=== PATIENT | female | born 1995 | race Caucasian/White ===

== ENCOUNTER 2017-12-28 06:27 | Emergency (ER) | payer OTHER ==
[2017-12-28 06:53] LABS: BILIRUBIN,URINE NEGATIVE (NEGATIVE); GLUCOSE, URINE (UA) NEGATIVE (NEGATIVE); KETONES,URINE (UA) NEGATIVE (NEGATIVE); LEUKOCYTE ESTERASE, URINE MODERATE (NEGATIVE); NITRITE,URINE NEGATIVE (NEGATIVE); OCCULT BLOOD,URINE NEGATIVE (NEGATIVE); PROTEIN,URINE NEGATIVE (NEGATIVE); UROBILINOGEN,URINE 0.2 (NORMAL) E.U./dL (NORMAL)
[2017-12-28 06:56] LABS: CLARITY,URINE HAZY (CLEAR); HCG UR QUAL NEGATIVE
[2017-12-28 07:04] LABS: RBC,URINE 0-5 /HPF (0-5); SQUAMOUS EPITHELIAL CELL,UR MOD Squamous (<= Few)
[2017-12-28 07:05] LABS: BACTERIA,URINE Few /HPF (None Seen)
[2017-12-28] MEDS ORDERED: PHENAZOPYRIDINE 100 MG TABLET PO STA (07:20)
[2017-12-28] MEDS ORDERED: NITROFURANTOIN MACRO 100 MG CAPSULE PO STA (07:20)
[2017-12-28] MEDS ORDERED: NAPROXEN 250 MG TABLET PO STA (07:21)
--- NOTE | 2017-12-28 07:24 | ED Physician Documentation ---
PD HPI FEMALE - Stated complaint Stated Complaint: FEMALE - Chief complaint Chief Complaint: Abd Pain - History obtained from History obtained from: Patient - History of Present Illness Timing - duration: Days (3) Timing - details: Still present Associated symptoms: Dysuria, Urinary frequency Similar symptoms before: Diagnosis (History of recurrent UTI's. The last time was about 6 months ago.) - Additional information Additional information: The patient is a 22-year-old female who presents with dysuria of 3 days patient. It is worse this morning. She denies fever, nausea or vomiting. She has history of similar symptoms in the past with recurrent urinary tract infections. The last time was about 6 months ago. Her last menstrual period was about 3 weeks ago. Review of Systems Constitutional: denies: Fever Nose: denies: Congestion Cardiac: denies: Chest pain / pressure Respiratory: denies: Dyspnea GI: reports: Abdominal Pain. denies: Nausea, Vomiting : reports: Dysuria, Frequency, LMP (3 weeks ago.) Skin: denies: Rash Musculoskeletal: denies: Back pain Neurologic: denies: Headache PD PAST MEDICAL HISTORY - Past Medical History Past Medical History: No - Past Surgical History Past Surgical History: No - Present Medications Home Medications: Ambulatory Orders Medication Instructions Recorded Confirmed Nitrofurantoin [Macrobid] 100 mg PO BID #10 capsule 12/28/17 Phenazopyridine HCl [Pyridium] 200 mg PO TID PRN #10 tablet 12/28/17 - Allergies Allergies/Adverse Reactions: Allergies Allergy/AdvReac Type Severity Reaction Status Date / Time No Known Drug Allergies Allergy Verified 12/28/17 06:37 - Social History Does the pt smoke?: No Smoking Status: Never smoker Does the pt drink ETOH?: No Does the pt have substance abuse?: No - Immunizations Immunizations are current?: Yes PD ED PE NORMAL - Vitals Vital signs reviewed: Yes (normal) - General General: Alert and oriented X 3, Well developed/nourished - HEENT HEENT: Atraumatic - Cardiac Cardiac: RRR - Respiratory Respiratory: No respiratory distress, Clear bilaterally - Abdomen Abdomen: Soft, Other (Suprapubic tenderness without rebound or guarding.) - Back Back: No CVA TTP - Derm Derm: No rash - Neuro Neuro: Alert and oriented X 3, Normal speech Results - Vitals Vitals: Vital Signs - 24 hr 12/28/17 06:31 Temperature 36.1 C L Heart Rate 73 Respiratory 16 Rate Blood Pressure 118/85 H O2 Saturation 100 Oxygen O2 Source Room air - Labs Labs: Laboratory Tests 12/28/17 06:43 Urine Color LIGHT YELLOW Urine Clarity HAZY Urine pH 6.0 Ur Specific [place] <=1.005 Urine Protein NEGATIVE Urine Glucose (UA) NEGATIVE Urine Ketones NEGATIVE Urine Occult Blood NEGATIVE Urine Nitrite NEGATIVE Urine Bilirubin NEGATIVE Urine Urobilinogen 0.2 (NORMAL) Ur Leukocyte Esterase MODERATE H Urine RBC 0-5 Urine WBC 11-25 H Ur Squamous Epith Cells MOD Squamous H Urine Bacteria Few Ur Microscopic Review INDICATED Urine Culture Comments NOT INDICATED Urine HCG, Qual NEGATIVE PD MEDICAL DECISION MAKING - ED course Complexity details: reviewed results, considered differential, d/w patient, d/w family ED course: The patient's presentation is most consistent with acute cystitis. Her presentation does not suggest sepsis or pyelonephritis. Treatment in the emergency department included administration of Macrobid 100 mg orally and Pyridium 200 mg orally. Also Naprosyn 500 mg administered orally. I discussed with the patient and her the expected course of illness, antibiotic treatment and outpatient follow-up, as well as potentially worrisome signs or symptoms that should prompt reevaluation in the emergency department. Departure - Departure Disposition: 01 Home, Self Care Clinical Impression: Urinary tract infection Qualifiers: Urinary tract infection type: acute cystitis Hematuria presence: without hematuria Qualified Code(s): N30.00 - Acute cystitis without hematuria Instructions: ED UTI Cystitis Female Follow-Up: [facility] [Provider Group] Prescriptions: Nitrofurantoin [Macrobid] 100 mg PO BID #10 capsule Phenazopyridine HCl [Pyridium] 200 mg PO TID PRN #10 tablet PRN Reason: pain with urination Comments: Drink plenty of fluids, including cranberry juice. Take Macrobid twice daily as prescribed. You can use Pyridium as prescribed if needed for painful urination. You can use ibuprofen, up to 800 mg 3 times daily for its anti-inflammatory effect. Follow up with your primary physician within 2 weeks. Call to schedule appointment. Return to the emergency department if you develop increasing abdominal pain, fever with shaking chills, persistent vomiting, or otherwise worsening symptoms.
[2017-12-28 07:40] VITALS: BP 126/64
== END 2017-12-28 07:40 | disposition home or self-care (01) ==
LOC: ED 06:27
DX: N30.00 Acute cystitis without hematuria (principal)
CPT/HCPCS: 81001; 81025; 99283; A9270; 81003; 87086

== ENCOUNTER 2018-08-20 22:26 | Emergency (ER) | payer OTHER ==
[2018-08-20 22:41] VITALS: BP 130/78
--- NOTE | 2018-08-20 22:54 | ED Physician Documentation ---
PD HPI FEMALE - Stated complaint Stated Complaint: FEMALE - Chief complaint Chief Complaint: UTI - History obtained from History obtained from: Patient - History of Present Illness Timing - onset: How many days ago (2-3) Timing - duration: Days (2-3) Timing - details: Gradual onset, Still present Associated symptoms: Back pain (right flank), Dysuria, Urinary frequency. No: Fever, Vaginal discharge, Genital sore/lesion Contributing factors: No: Exposed to STD Similar symptoms before: Diagnosis (UTI) Recently seen: Not recently seen Review of Systems Constitutional: denies: Fever, Chills, Myalgias Nose: denies: Rhinorrhea / runny nose, Congestion Throat: denies: Sore throat Respiratory: denies: Cough GI: denies: Nausea, Vomiting, Diarrhea : reports: Dysuria, Frequency Skin: denies: Rash Musculoskeletal: reports: Back pain. denies: Neck pain PD PAST MEDICAL HISTORY - Past Medical History Past Medical History: Yes Cardiovascular: None Respiratory: None Neuro: None Endocrine/Autoimmune: None : Other Other Past Medical History: UTI - Past Surgical History Past Surgical History: No - Present Medications Home Medications: Ambulatory Orders Medication Instructions Recorded Confirmed Hydrocodone/Acetaminophen [Walker 1 each PO Q6H PRN #8 tablet 08/20/18 5-325 Tablet] Naproxen 375 mg PO BID #15 tablet 08/20/18 Sulfamethox/Trimeth 800/160 1 each PO BID #14 tablet 08/20/18 [Bactrim Ds 800/160] - Allergies Allergies/Adverse Reactions: Allergies Allergy/AdvReac Type Severity Reaction Status Date / Time No Known Drug Allergies Allergy Verified 08/20/18 22:41 - Social History Does the pt smoke?: No Smoking Status: Never smoker Does the pt drink ETOH?: No Does the pt have substance abuse?: No - Immunizations Immunizations are current?: Yes - POLST Patient has POLST: No PD ED PE NORMAL - Vitals Vital signs reviewed: Yes - General General: Alert and oriented X 3, No acute distress, Well developed/nourished - Abdomen Abdomen: Soft, Non distended, Other (mild tenderness suprapubic without guarding nor percussion tenderness. ) - Female Female : Deferred - Rectal Rectal: Deferred - Back Back: No spinal TTP, Other (mild right CVA tenderness to percussion) - Derm Derm: Normal color, Warm and dry Results - Vitals Vitals: Vital Signs - 24 hr 08/20/18 22:40 Temperature 37.0 C Heart Rate 84 Respiratory 15 Rate Blood Pressure 130/78 O2 Saturation 98 Oxygen O2 Source Room air - Labs Labs: Laboratory Tests 08/20/18 08/20/18 22:50 22:50 Urine Color ORANGE Urine Clarity CLOUDY Urine pH 7.0 Ur Specific [place] 1.020 1.020 Urine Protein Urine Glucose (UA) 100 H Urine Ketones NEGATIVE Urine Occult Blood Urine Nitrite Urine Bilirubin COLOR INTERFERENCE Urine Urobilinogen Ur Leukocyte Esterase NEGATIVE Urine RBC 0-5 Urine WBC 11-25 H Ur Squamous Epith Cells FEW Squamous Amorphous Sediment Few Urine Bacteria Few Ur Microscopic Review INDICATED Urine Culture Comments INDICATED Urine HCG, Qual NEGATIVE PD MEDICAL DECISION MAKING - ED course Complexity details: reviewed results, considered differential, d/w patient Departure - Departure Disposition: 01 Home, Self Care Clinical Impression: Urinary tract infection Qualifiers: Urinary tract infection type: acute cystitis Hematuria presence: without hematuria Qualified Code(s): N30.00 - Acute cystitis without hematuria Condition: Stable Record reviewed to determine appropriate education?: Yes Instructions: ED UTI Cystitis Female Prescriptions: Hydrocodone/Acetaminophen [Walker 5-325 Tablet] 1 each PO Q6H PRN #8 tablet PRN Reason: Pain Naproxen 375 mg PO BID #15 tablet Sulfamethox/Trimeth 800/160 [Bactrim Ds 800/160] 1 each PO BID #14 tablet Comments: Stay well-hydrated. You can continue the phenazopyridine if needed for urinary discomfort. Add naproxen anti-inflammatory twice daily for the next week or so. Add Tylenol or pain medicine if needed for pain beyond that. Your urine sample does show signs of an infection which correlates with your symptoms so we will treat that with Bactrim antibiotic twice daily as directed. Recheck if not improving over the next few days. Discharge Date/Time: 08/20/18 23:30
[2018-08-20] MEDS ORDERED: SULFAMETH/TRIMETH DS 800/160 MG TABLET PO STA (23:03)
[2018-08-20] MEDS ORDERED: HYDROcod/ACETAM 5/325 MG TABLET PO STA (23:03)
[2018-08-20] MEDS ORDERED: NAPROXEN 250 MG TABLET PO STA (23:03)
[2018-08-20 23:15] LABS: HCG UR QUAL NEGATIVE
[2018-08-20 23:16] LABS: CLARITY,URINE CLOUDY (CLEAR); LEUKOCYTE ESTERASE, URINE NEGATIVE (NEGATIVE)
[2018-08-20 23:19] LABS: BILIRUBIN,URINE COLOR INTERFERENCE (NEGATIVE); GLUCOSE, URINE (UA) 100 mg/dL (NEGATIVE); KETONES,URINE (UA) NEGATIVE (NEGATIVE)
[2018-08-20 23:20] LABS: RBC,URINE 0-5 /HPF (0-5); SQUAMOUS EPITHELIAL CELL,UR FEW Squamous (<= Few)
[2018-08-20 23:21] LABS: AMORPHOUS SEDIMENT,UR Few /LPF; BACTERIA,URINE Few /HPF (None Seen)
== END 2018-08-20 23:30 | disposition home or self-care (01) ==
LOC: ED 22:26
DX: N30.00 Acute cystitis without hematuria (principal)
CPT/HCPCS: 81001; 81025; 87077; 87086; 87181; 99283; A9270; 81003

== ENCOUNTER 2018-09-14 22:45 | Emergency (ER) | payer OTHER ==
[2018-09-14 22:51] VITALS: BP 139/94
[2018-09-14] MEDS ORDERED: AZITHROMYCIN 250 MG TABLET PO STA (23:07)
[2018-09-14] MEDS ORDERED: cefTRIAXone 250 MG VIAL IM STA (23:07)
[2018-09-14] MEDS ORDERED: RALTEGRAVIR 400 MG TABLET PO STA (23:07)
[2018-09-14] MEDS ORDERED: lamiVUDine/ZIDOVUDINE 150 MG/300 MG TABLET PO STA (23:07)
[2018-09-14] MEDS ORDERED: ULIPRISTAL ACETATE 30 MG TABLET PO STA (23:07)
[2018-09-14] MEDS ORDERED: ONDANSETRON 4 MG/2 ML VIAL IVP STA (23:08)
[2018-09-14] MEDS ORDERED: ONDANSETRON ODT 4 MG TABLET TL STA (23:27)
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
[2018-09-15 01:09] LABS: BILIRUBIN,URINE NEGATIVE (NEGATIVE); GLUCOSE, URINE (UA) NEGATIVE (NEGATIVE); KETONES,URINE (UA) NEGATIVE (NEGATIVE); LEUKOCYTE ESTERASE, URINE SMALL (NEGATIVE); NITRITE,URINE NEGATIVE (NEGATIVE); OCCULT BLOOD,URINE NEGATIVE (NEGATIVE); PH,URINE 6.5 PH (5.0-7.5); PROTEIN,URINE NEGATIVE (NEGATIVE); UROBILINOGEN,URINE 0.2 (NORMAL) E.U./dL (NORMAL)
[2018-09-15] MEDS: LIDOCAINE 1% 2 ML VIAL SUBQ ONE ×2 (01:10→01:11)
[2018-09-15 01:15] LABS: CLARITY,URINE HAZY (CLEAR)
[2018-09-15 01:16] LABS: HCG UR QUAL NEGATIVE
[2018-09-15 01:29] LABS: BACTERIA,URINE Few /HPF (None Seen); RBC,URINE None Seen /HPF (0-5); SQUAMOUS EPITHELIAL CELL,UR MANY Squamous (<= Few)
[2018-09-17 13:21] LABS: HIV AG/AB 4TH GEN NON-REACTIVE (NON-REACTIVE)
== END 2018-09-15 01:47 | disposition home or self-care (01) ==
LOC: ED 22:45
DX: T76.21XA Adult sexual abuse, suspected, initial encounter (principal); Z20.2 Contact with and (suspected) exposure to infections with a predominantly sexual mode of transmission
CPT/HCPCS: 0133C; 81001; 81025; 87389; 87491; 87591; 96372; 99283; A9270; Q0162; 81003; 87086

== ENCOUNTER 2019-01-22 16:15 | Emergency (ER) | payer OTHER ==
[2019-01-22 16:22] VITALS: BP 121/83
[2019-01-22] MEDS ORDERED: DICYCLOMINE 10 MG CAPSULE PO STA (16:28)
[2019-01-22] MEDS ORDERED: ONDANSETRON ODT 4 MG TABLET TL STA (16:28)
--- NOTE | 2019-01-22 16:29 | ED Physician Documentation ---
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 She had some loose stools and nausea yesterday. She has them some diffuse abdominal cramping. There is a possibility of but she is not let yet late on her menses. No fevers. No sick contacts, no recent travel.) Review of Systems Constitutional: denies: Fever, Chills, Fatigue Cardiac: denies: Chest pain / pressure, Palpitations Respiratory: denies: Dyspnea, Cough PD PAST MEDICAL HISTORY - Past Medical History Cardiovascular: None Respiratory: None Neuro: None Endocrine/Autoimmune: None : Other - Past Surgical History Past Surgical History: No - Present Medications Home Medications: Ambulatory Orders Medication Instructions Recorded Confirmed Dicyclomine [Bentyl] 20 mg PO QID PRN #15 capsule 01/22/19 Ondansetron Odt [Zofran] 4 mg TL Q6H PRN #10 tablet 01/22/19 - Allergies Allergies/Adverse Reactions: Allergies Allergy/AdvReac Type Severity Reaction Status Date / Time No Known Drug Allergies Allergy Verified 01/22/19 16:21 - Social History Does the pt smoke?: No Smoking Status: Never smoker Does the pt drink ETOH?: No Does the pt have substance abuse?: No - Immunizations Immunizations are current?: Yes - POLST Patient has POLST: No PD ED PE NORMAL - Vitals Vital signs reviewed: Yes - General General: Alert and oriented X 3, No acute distress - HEENT HEENT: Moist mucous membranes - Cardiac Cardiac: RRR, No murmur - Respiratory Respiratory: No respiratory distress, Clear bilaterally - Abdomen Abdomen: Soft, Non tender - Neuro Neuro: Alert and oriented X 3, Normal speech Results - Vitals Vitals: Vital Signs - 24 hr 01/22/19 16:18 Temperature 36.8 C Heart Rate 105 H Respiratory 14 Rate Blood Pressure 121/83 H O2 Saturation 99 Oxygen O2 Source Room air - Labs Labs: Laboratory Tests 01/22/19 16:18 Urine Color YELLOW Urine Clarity CLEAR Urine pH 6.5 Ur Specific [place] 1.020 Urine Protein NEGATIVE Urine Glucose (UA) NEGATIVE Urine Ketones NEGATIVE Urine Occult Blood NEGATIVE Urine Nitrite NEGATIVE Urine Bilirubin NEGATIVE Urine Urobilinogen 0.2 (NORMAL) Ur Leukocyte Esterase NEGATIVE Ur Microscopic Review NOT INDICATED Urine Culture Comments NOT INDICATED Urine HCG, Qual NEGATIVE PD MEDICAL DECISION MAKING - ED course ED course: 23-year-old woman with vomiting, mild diarrhea and cramping, benign examination. She is not on urine here and feeling better after Zofran and Bentyl. Departure - Departure Disposition: 01 Home, Self Care Clinical Impression: Vomiting Qualifiers: Vomiting type: unspecified Vomiting Intractability: non-intractable Nausea presence: with nausea Qualified Code(s): R11.2 - Nausea with vomiting, unspecified Condition: Good Record reviewed to determine appropriate education?: Yes Instructions: ED Nausea Vomiting Prescriptions: Dicyclomine [Bentyl] 20 mg PO QID PRN #15 capsule PRN Reason: Abdominal Pain Ondansetron Odt [Zofran] 4 mg TL Q6H PRN #10 tablet PRN Reason: Nausea / Vomiting Comments: As discussed you should be better tomorrow morning or tomorrow midday if not please return for reevaluation, anytime if worse. Forms: Activity restrictions
[2019-01-22 16:37] LABS: BILIRUBIN,URINE NEGATIVE (NEGATIVE); GLUCOSE, URINE (UA) NEGATIVE (NEGATIVE); KETONES,URINE (UA) NEGATIVE (NEGATIVE); LEUKOCYTE ESTERASE, URINE NEGATIVE (NEGATIVE); NITRITE,URINE NEGATIVE (NEGATIVE); OCCULT BLOOD,URINE NEGATIVE (NEGATIVE); PH,URINE 6.5 PH (5.0-7.5); PROTEIN,URINE NEGATIVE (NEGATIVE); UROBILINOGEN,URINE 0.2 (NORMAL) E.U./dL (NORMAL)
[2019-01-22 16:38] LABS: CLARITY,URINE CLEAR (CLEAR)
[2019-01-22 16:39] LABS: HCG UR QUAL NEGATIVE
== END 2019-01-22 17:12 | disposition home or self-care (01) ==
LOC: ED 16:15
DX: R11.2 Nausea with vomiting, unspecified (principal)
CPT/HCPCS: 81003; 81025; 99283; A9270; Q0162; 80053; 81001; 83690; 85025; 87086

== ENCOUNTER 2019-07-19 23:37 | Emergency (ER) | payer OTHER ==
[2019-07-19 23:48] VITALS: BP 125/74
--- NOTE | 2019-07-20 00:08 | ED Physician Documentation ---
PD HPI SKIN - Stated complaint Stated Complaint: BODY RASH - Chief complaint Chief Complaint: Wound - History obtained from History obtained from: Patient - History of Present Illness Timing - onset: How many months ago (1) Timing - details: Abrupt onset, Intermittant Pain level max: 0 Pain level now: 0 Location: Bodywide Quality / character: Itchy, Discolored Improved by: Other (nothing) Associated symptoms: No: Fever, Myalgias, Joint pain, Dyspnea Contributing factors: Unknown Similar symptoms before: Has not had sx before Recently seen: Not recently seen - Additional information Additional information: c/o one month of intermittent/episodic pruritic rash. Location varies at different times. Patient has noticed that the rash has tended to be preceded by itching, then the rash appears within several minutes but then resolves within 15-30 minutes. 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 HEENT: None Psych: None Musculoskeletal: None - Past Surgical History Past Surgical History: No - Present Medications Home Medications: Ambulatory Orders Medication Instructions Recorded Confirmed hydrOXYzine pamoate [Hydroxyzine 25 - 50 mg PO Q6HR PRN #20 capsule 07/20/19 Pamoate] predniSONE [Deltasone] 10 mg PO [id number] #42 tab 07/20/19 - Allergies Allergies/Adverse Reactions: Allergies Allergy/AdvReac Type Severity Reaction Status Date / Time No Known Drug Allergies Allergy Verified 07/19/19 23:48 - Social History Does the pt smoke?: No Smoking Status: Never smoker Does the pt drink ETOH?: Yes Does the pt have substance abuse?: No - Immunizations Immunizations are current?: Yes - POLST Patient has POLST: No PD ED PE NORMAL - Vitals Vital signs reviewed: Yes - General General: Alert and oriented X 3, No acute distress, Well developed/nourished - Neck Neck: Supple, no meningeal sign - Respiratory Respiratory: No respiratory distress, Clear bilaterally - Derm Derm: Normal color, Warm and dry, No rash - Extremities Extremities: No edema Results - Vitals Vitals: Vital Signs - 24 hr 07/19/19 23:46 Temperature 36.9 C Heart Rate 98 Respiratory 15 Rate Blood Pressure 125/74 O2 Saturation 99 Oxygen O2 Source Room air PD MEDICAL DECISION MAKING - ED course Complexity details: considered differential, d/w patient ED course: no rash on initial evaluation. patient shows me pictures of the rash and they appear to be distinctly linear in distribution that would be consistent with areas of excoriation. I then used gloved fingernail to stroke across patient back and within ensuing 1-2 minutes, there were bright erythematous lines with urticaria within these areas and she c/o pruritis in these areas. this is c/w symptomatic dermatographism; there are no obvious causes such as new medication. Departure - Departure Disposition: 01 Home, Self Care Clinical Impression: Dermatographism Condition: Good Instructions: ED Urticaria Follow-Up: [facility] [Provider Group] Prescriptions: hydrOXYzine pamoate [Hydroxyzine Pamoate] 25 - 50 mg PO Q6HR PRN #20 capsule PRN Reason: Itching predniSONE [Deltasone] 10 mg PO [id number] #42 tab Discharge Date/Time: 07/20/19 00:50
[2019-07-20] MEDS ORDERED: hydrOXYzine PAMOATE 25 MG CAPSULE PO STA (00:42)
[2019-07-20] MEDS ORDERED: predniSONE 20 MG TABLET PO STA (00:42)
== END 2019-07-20 00:50 | disposition home or self-care (01) ==
LOC: ED 23:37
DX: L50.3 Dermatographic urticaria (principal)
CPT/HCPCS: 99282; 99284; A9270; J7512

== ENCOUNTER 2020-01-11 22:45 | Outpatient (CLI) | payer OTHER | END 2020-01-11 23:59 | disposition EMS.NT | LOC: EMS 22:45 | PROVIDERS: ATTEND Surgery | DX: R06.9 Unspecified abnormalities of breathing (principal) ==

== ENCOUNTER 2020-06-19 00:34 | Emergency (ER) | payer OTHER ==
--- NOTE | 2020-06-19 00:54 | ED Physician Documentation ---
PD HPI FEMALE - Stated complaint Stated Complaint: F - Chief complaint Chief Complaint: UTI - History obtained from History obtained from: Patient - History of Present Illness Timing - onset: Enter time (19:00), Today Timing - duration: Hours Timing - details: Abrupt onset Associated symptoms: Dysuria, Urinary frequency. No: Fever Contributing factors: No: Similar symptoms before: Diagnosis (similar to previous UTIs) Recently seen: Not recently seen - Additional information Additional information: c/o burning dysuria with urinary frequency and suprapubic pressure since 7 PM Review of Systems Constitutional: denies: Fever GI: denies: Abdominal Pain, Nausea, Vomiting : reports: Dysuria, Frequency. 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 HEENT: None Psych: None Musculoskeletal: None - Past Surgical History Past Surgical History: No - Present Medications Home Medications: Ambulatory Orders Medication Instructions Recorded Confirmed hydrOXYzine pamoate [Hydroxyzine 25 - 50 mg PO Q6HR PRN #20 capsule 07/20/19 Pamoate] predniSONE [Deltasone] 10 mg PO [id number] #42 tab 07/20/19 Nitrofurantoin Monohyd/M-Cryst 100 mg PO BID #10 capsule 06/19/20 [Macrobid 100 mg Capsule] Phenazopyridine HCl [Pyridium] 200 mg PO TID PRN #6 tablet 06/19/20 - Allergies Allergies/Adverse Reactions: Allergies Allergy/AdvReac Type Severity Reaction Status Date / Time No Known Drug Allergies Allergy Verified 07/19/19 23:48 - Social History Does the pt smoke?: No Smoking Status: Never smoker Does the pt drink ETOH?: Yes Does the pt have substance abuse?: No - Immunizations Immunizations are current?: Yes - POLST Patient has POLST: No PD ED PE NORMAL - Vitals Vital signs reviewed: Yes - General General: Alert and oriented X 3, No acute distress - Abdomen Abdomen: Soft, Non tender - Back Back: No CVA TTP Results - Vitals Vitals: Vital Signs - 24 hr 06/19/20 06/19/20 00:38 01:29 Temperature 36.9 C Heart Rate 95 82 Respiratory 18 16 Rate Blood Pressure 126/74 126/78 O2 Saturation 98 99 Oxygen O2 Source Room air - Labs Labs: Laboratory Tests 06/19/20 00:50 Urine Color CLEAR Urine Clarity [place] CLOUDY Urine pH 6.5 Ur Specific [place] <=1.005 Urine Protein NEGATIVE Urine Glucose (UA) NEGATIVE Urine Ketones NEGATIVE Urine Occult Blood LARGE H Urine Nitrite NEGATIVE Urine Bilirubin NEGATIVE Urine Urobilinogen 0.2 (NORMAL) Ur Leukocyte Esterase LARGE H Urine RBC 6-10 H Urine WBC >25 H Ur Squamous Epith Cells FEW Squamous Urine Bacteria Few Ur Microscopic Review INDICATED Urine Culture Comments INDICATED PD MEDICAL DECISION MAKING - ED course Complexity details: reviewed old records, reviewed results, considered differential, d/w patient Departure - Departure Disposition: Home, Self Care Clinical Impression: Urinary tract infection Condition: Good Instructions: ED UTI Cystitis Female Follow-Up: Stephani Mackenzie MD [Primary Care Provider] - (3-5 days if symptoms persist) Prescriptions: Nitrofurantoin Monohyd/M-Cryst [Macrobid 100 mg Capsule] 100 mg PO BID #10 capsule Phenazopyridine HCl [Pyridium] 200 mg PO TID PRN #6 tablet PRN Reason: dysuria Discharge Date/Time: 06/19/20 01:30
[2020-06-19 01:01] LABS: BILIRUBIN,URINE NEGATIVE (NEGATIVE); CLARITY,URINE SL. CLOUDY (CLEAR); GLUCOSE, URINE (UA) NEGATIVE (NEGATIVE); KETONES,URINE (UA) NEGATIVE (NEGATIVE); LEUKOCYTE ESTERASE, URINE LARGE (NEGATIVE); NITRITE,URINE NEGATIVE (NEGATIVE); OCCULT BLOOD,URINE LARGE (NEGATIVE); PH,URINE 6.5 PH (5.0-7.5); PROTEIN,URINE NEGATIVE (NEGATIVE); UROBILINOGEN,URINE 0.2 (NORMAL) E.U./dL (NORMAL)
[2020-06-19 01:02] LABS: BACTERIA,URINE Few /HPF (None Seen); SQUAMOUS EPITHELIAL CELL,UR FEW Squamous (<= Few)
[2020-06-19] MEDS ORDERED: NITROFURANTOIN MACRO 100 MG CAPSULE PO STA (01:20)
[2020-06-19] MEDS ORDERED: PHENAZOPYRIDINE 100 MG TABLET PO STA (01:20)
[2020-06-19 01:30] VITALS: BP 126/78
== END 2020-06-19 01:30 | disposition home or self-care (01) ==
LOC: ED 00:34
DX: N39.0 Urinary tract infection, site not specified (principal)
CPT/HCPCS: 81001; 87086; 99283; A9270; 81003

== ENCOUNTER 2020-09-15 10:44 | Emergency (ER) | payer OTHER ==
[2020-09-15 10:49] VITALS: BP 137/86
[2020-09-15 11:02] LABS: BILIRUBIN,URINE NEGATIVE (NEGATIVE); GLUCOSE, URINE (UA) NEGATIVE (NEGATIVE); KETONES,URINE (UA) NEGATIVE (NEGATIVE); LEUKOCYTE ESTERASE, URINE LARGE (NEGATIVE); NITRITE,URINE NEGATIVE (NEGATIVE); OCCULT BLOOD,URINE MODERATE (NEGATIVE); PH,URINE 6.5 PH (5.0-7.5); PROTEIN,URINE NEGATIVE (NEGATIVE); UROBILINOGEN,URINE 0.2 (NORMAL) E.U./dL (NORMAL)
[2020-09-15 11:04] LABS: CLARITY,URINE HAZY (CLEAR); HCG UR QUAL NEGATIVE
[2020-09-15 11:12] LABS: BACTERIA,URINE Few /HPF (None Seen); RBC,URINE 0-5 /HPF (0-5); SQUAMOUS EPITHELIAL CELL,UR RARE Squamous (<= Few); WBC CLUMPS,URINE PRESENT
[2020-09-15] MEDS ORDERED: cefTRIAXone 1 GM VIAL IM STA (11:23)
[2020-09-15] MEDS ORDERED: LIDOCAINE 1% 2 ML VIAL MC ONE (11:23)
--- NOTE | 2020-09-15 11:26 | ED Physician Documentation ---
PD HPI FEMALE - Stated complaint Stated Complaint: FEMALE - Chief complaint Chief Complaint: UTI - History obtained from History obtained from: Patient - History of Present Illness Timing - onset: How many days ago (4) Timing - duration: Days (4) Timing - details: Gradual onset, Still present Associated symptoms: Back pain, Dysuria, Urinary frequency. No: Fever, Chest/shoulder pain, Abdominal pain, Pelvic pain, Vaginal pain, Vaginal bleeding, Vaginal discharge, Genital sore/lesion, Hematuria Similar symptoms before: Diagnosis (UTI) Recently seen: Not recently seen - Additional information Additional information: Previously well 25-year-old female with a history of urinary tract infections has developed symptoms again of urinary tract infection about 3 or 4 days ago. Yesterday she began to get some pain in her left flank as well but she has not had any nausea fever vomiting or other symptoms. Review of Systems Constitutional: denies: Fever, Chills, Myalgias Eyes: denies: Decreased vision Ears: denies: Ear pain Nose: denies: Rhinorrhea / runny nose, Congestion Throat: denies: Sore throat Cardiac: denies: Chest pain / pressure, Palpitations Respiratory: denies: Dyspnea, Cough GI: denies: Abdominal Pain, Nausea, Vomiting, Constipation, Diarrhea : reports: Dysuria, Frequency Skin: denies: Rash Musculoskeletal: reports: Back pain. 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 HEENT: None Psych: None Musculoskeletal: None - Past Surgical History Past Surgical History: No - Present Medications Home Medications: Ambulatory Orders Medication Instructions Recorded Confirmed Sulfamethox/Trimeth 800/160 1 each PO BID #14 tablet 09/15/20 [Bactrim Ds] - Allergies Allergies/Adverse Reactions: Allergies Allergy/AdvReac Type Severity Reaction Status Date / Time No Known Drug Allergies Allergy Verified 09/15/20 10:46 - Social History Does the pt smoke?: No Smoking Status: Never smoker Does the pt drink ETOH?: Yes Does the pt have substance abuse?: No - Immunizations Immunizations are current?: Yes - POLST Patient has POLST: No PD ED PE NORMAL - Vitals Vital signs reviewed: Yes (Hypertensive mild) - General General: Alert and oriented X 3, No acute distress - HEENT HEENT: Atraumatic, PERRL, EOMI - Neck Neck: Supple, no meningeal sign - Cardiac Cardiac: RRR, No murmur - Respiratory Respiratory: No respiratory distress, Clear bilaterally - Abdomen Abdomen: Normal bowel sounds, Soft, Non distended, No organomegaly, Other (There is left upper quadrant tenderness to bimanual palpation of the left kidney) - Back Back: No spinal TTP, Other (There is left CVA tenderness present) - Derm Derm: Normal color, Warm and dry, No rash - Extremities Extremities: No deformity, No edema - Neuro Neuro: Alert and oriented X 3, 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, No motor deficit, No sensory deficit, Normal speech Eye Opening: Spontaneous Motor: Obeys Commands Verbal: Oriented GCS Score: 15 - Psych Psych: Normal mood, Normal affect Results - Vitals Vitals: Vital Signs - 24 hr 09/15/20 10:47 Temperature 37.1 C Heart Rate 100 Respiratory 18 Rate Blood Pressure 137/86 H O2 Saturation 99 Oxygen O2 Source Room air - Labs Labs: Laboratory Tests 09/15/20 10:50 Urine Color LIGHT YELLOW Urine Clarity HAZY Urine pH 6.5 Ur Specific [place] <=1.005 Urine Protein NEGATIVE Urine Glucose (UA) NEGATIVE Urine Ketones NEGATIVE Urine Occult Blood MODERATE H Urine Nitrite NEGATIVE Urine Bilirubin NEGATIVE Urine Urobilinogen 0.2 (NORMAL) Ur Leukocyte Esterase LARGE H Urine RBC 0-5 Urine WBC >25 H Urine WBC Clumps PRESENT Ur Squamous Epith Cells RARE Squamous Urine Bacteria Few Ur Microscopic Review INDICATED Urine Culture Comments INDICATED Urine HCG, Qual NEGATIVE PD MEDICAL DECISION MAKING - ED course Complexity details: considered differential, d/w patient ED course: 25-year-old female with urinary tract symptoms has flank pain to bimanual patient palpation of the left kidney she is not nauseous or having fever she is treated for pyelonephritis with a gram of Rocephin IM and we will place her on some . Departure - Departure Disposition: 01 Home, Self Care Clinical Impression: Pyelonephritis Condition: Stable Instructions: ED Kidney Infec Female Follow-Up: Stephani Mackenzie MD [Primary Care Provider] - Prescriptions: Sulfamethox/Trimeth 800/160 [Bactrim Ds] 1 each PO BID #14 tablet
== END 2020-09-15 11:32 | disposition home or self-care (01) ==
LOC: ED 10:44
DX: N12 Tubulo-interstitial nephritis, not specified as acute or chronic (principal)
CPT/HCPCS: 81001; 81003; 81025; 87086; 87181; 96372; 99283

== ENCOUNTER 2020-09-23 18:28 | Emergency (ER) | payer OTHER ==
[2020-09-23] MEDS ORDERED: SODIUM CHLORIDE 0.9% 1,000 ML IV STA (18:55)
[2020-09-23] MEDS ORDERED: KETOROLAC 30 MG/ML VIAL IVP STA (18:55)
[2020-09-23] MEDS ORDERED: ONDANSETRON 4 MG/2 ML VIAL IVP STA (18:55)
--- NOTE | 2020-09-23 18:57 | ED Physician Documentation ---
History of Present Illness - Stated complaint Stated Complaint: FEMALE - Chief complaint Chief Complaint: General - History obtained from History obtained from: Patient - Additonal information Additional information: As a she has had some sort of pelvic surgery for mass removal. She does not know the details. More recently over the last few years has developed frequent UTIs up to 8-10 a year. She was seen here about a week ago for this and eventually was prescribed Keflex which the E. coli that grew out of her urine is sensitive to. Despite that she is no better and is worse with bilateral flank pain, periarea rash, nausea. No fevers. No possibility of . 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 HEENT: None Psych: None Musculoskeletal: None - Past Surgical History Past Surgical History: No - Present Medications Home Medications: Ambulatory Orders Medication Instructions Recorded Confirmed Levofloxacin [Levaquin] 500 mg PO DAILY #10 09/23/20 cephALEXin [Keflex] 500 mg BID 09/23/20 09/23/20 - Allergies Allergies/Adverse Reactions: Allergies Allergy/AdvReac Type Severity Reaction Status Date / Time No Known Drug Allergies Allergy Verified 09/23/20 18:39 - Social History Does the pt smoke?: No Smoking Status: Never smoker Does the pt drink ETOH?: Yes Does the pt have substance abuse?: No - Immunizations Immunizations are current?: Yes - POLST Patient has POLST: No PD ED PE NORMAL - Vitals Vital signs reviewed: Yes - General General: Alert and oriented X 3, No acute distress - Cardiac Cardiac: RRR, No murmur - Respiratory Respiratory: No respiratory distress, Clear bilaterally - Abdomen Abdomen: Normal bowel sounds, Soft, Non tender - Female Female : Hotel 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1 MCH 29.6 MCHC 34.0 RDW 12.1 Plt Count 313 MPV 8.9 Neut # (Auto) 6.3 Lymph # (Auto) 1.9 Finney # (Auto) 0.8 Eos # (Auto) 0.1 Baso # (Auto) 0.0 Absolute Nucleated RBC 0.00 Nucleated RBC % 0.0 Sodium 142 Potassium 3.7 Chloride 104 Carbon Dioxide 23 Anion Gap 15.0 H BUN 7 Creatinine 0.7 Estimated GFR (MDRD) 104 Glucose 96 Calcium 9.9 Total Bilirubin 0.7 AST 22 ALT 24 Alkaline Phosphatase 50 Total Protein 7.6 Albumin 4.4 Globulin 3.2 Albumin/Globulin Ratio 1.4 Lipase 31 Urine Color STRAW Urine Clarity HAZY Urine pH 6.5 Ur Specific [place] <=1.005 Urine Protein NEGATIVE Urine Glucose (UA) NEGATIVE Urine Ketones NEGATIVE Urine Occult Blood SMALL H Urine Nitrite NEGATIVE Urine Bilirubin NEGATIVE Urine Urobilinogen 0.2 (NORMAL) Ur Leukocyte Esterase MODERATE H Urine RBC 11-25 H Urine WBC >25 H Ur Squamous Epith Cells MOD Squamous H Urine Bacteria Few Ur Microscopic Review INDICATED Urine Culture Comments NOT INDICATED Urine HCG, Qual 09/23/20 20:25 WBC RBC Hgb Hct MCV MCH MCHC RDW Plt Count MPV Neut # (Auto) Lymph # (Auto) [place] # (Auto) Eos # (Auto) Baso # (Auto) Absolute Nucleated RBC Nucleated RBC % Sodium Potassium Chloride Carbon Dioxide Anion Gap BUN Creatinine Estimated GFR (MDRD) Glucose Calcium Total Bilirubin AST ALT Alkaline Phosphatase Total Protein Albumin Globulin Albumin/Globulin Ratio Lipase Urine Color Urine Clarity Urine pH Ur Specific [place] Urine Protein Urine Glucose (UA) Urine Ketones Urine Occult Blood Urine Nitrite Urine Bilirubin Urine Urobilinogen Ur Leukocyte Esterase Urine RBC Urine WBC Ur Squamous Epith Cells Urine Bacteria Ur Microscopic Review Urine Culture Comments Urine HCG, Qual NEGATIVE PD MEDICAL DECISION MAKING - ED course ED course: 25-year-old woman frequent UTIs with recalcitrant symptoms after the last one. Previous culture reviewed. Was sensitive to Keflex, but seems to have persistent treatment failure. White count is normal and CT is negative except for large stool load. Remained nontender on reevaluation. Discussed signs and symptoms necessitating an urgent reevaluation and also the need for urology follow-up given the greater than 10 or so UTIs per year. Departure - Departure Disposition: Home, Self Care Clinical Impression: Pyelonephritis Condition: Good Record reviewed to determine appropriate education?: Yes Instructions: Pyelonephritis Dc Prescriptions: Levofloxacin [Levaquin] 500 mg PO DAILY #10 Comments: As discussed, the CT scan today is basically normal with the exception of maybe some excessive stool load. Drink extra water and may need some prunes and other high-fiber diet. You do have evidence of persistent pyelonephritis and UTI despite appropriate antibiotics. Levofloxacin is a more powerful antibiotic with better kidney coverage albeit more side effects than the one you were previously given. You should not do heavy exercise such as hard running, sprinting, heavy weightlifting, pylometrics/cross-fit while on it or for a week afterwards. Given your frequent UTIs, talk with your doctor about a referral to urologist.
[2020-09-23 18:59] LABS: BASOPHILS % (AUTO) 0.4 %; EOSINOPHILS # (AUTO) 0.1 10^3/uL (0.0-0.7); EOSINOPHILS % (AUTO) 0.7 %; HGB - HEMOGLOBIN 12.4 g/dL (12.0-16.0); LYMPHOCYTES # (AUTO) 1.9 10^3/uL (1.5-3.5); LYMPHOCYTES % (AUTO) 20.7 %; MEAN CORPUSCULAR HEMOGLOBIN 29.6 pg (27.0-31.0); MEAN CORPUSCULAR VOLUME 87.1 fL (81.0-99.0); MEAN PLATELET VOLUME 8.9 fL (7.9-10.8); MONOCYTES # (AUTO) 0.8 10^3/uL (0.0-1.0); MONOCYTES % (AUTO) 8.6 %; NEUTROPHILS # (AUTO) 6.3 10^3/uL (1.5-6.6); NEUTROPHILS % (AUTO) 69.3 %; PLT - PLATELET COUNT 313 10^3/uL (130-450); RED BLOOD COUNT 4.19 10^6/uL (4.20-5.40); RED CELL DISTRIBUTION WIDTH 12.1 % (12.0-15.0); WHITE BLOOD COUNT 9.1 x10^3/uL (4.8-10.8)
[2020-09-23] MEDS ORDERED: IOVERSOL 320 100 ML VIAL IVP ONE ×2 (19:11→20:12)
[2020-09-23 19:12] LABS: ALBUMIN 4.4 g/dL (3.2-5.5); ALBUMIN/GLOBULIN RATIO 1.4 (1.0-2.2); BILIRUBIN,TOTAL 0.7 mg/dL (0.2-1.0); CALCIUM 9.9 mg/dL (8.5-10.3); CREATININE 0.7 mg/dL (0.4-1.0); TOTAL PROTEIN 7.6 g/dL (6.7-8.2)
[2020-09-23] MEDS ORDERED: FLUCONAZOLE 100 MG TABLET PO STA (19:44)
--- NOTE | 2020-09-23 20:17 | CT Report ---
PROCEDURE: Abdomen/Pelvis W INDICATIONS: B flank pain CONTRAST: IV CONTRAST: Optiray 320 ml: 100 PO CONTRAST: *NO PO CONTRAST TECHNIQUE: After the administration of intravenous contrast, 5 mm thick sections acquired from the diaphragms to the symphysis. 5 mm thick coronal and sagittal reformats were acquired. For radiation dose reducti on, the following was used: automated exposure control, adjustment of mA and/or kV according to chadwick ent size. COMPARISON: None. FINDINGS: Image quality: Excellent. ABDOMEN: Lung bases: Lung bases are clear. Heart size is normal. Bilateral breast nipple piercings. 3.3 cm l eft adnexal region cyst. Solid organs: Liver and spleen are normal in size and enhancement. Gallbladder is within normal muir its Biliary system is non dilated. Pancreas enhances normally. No adrenal nodules. Kidneys demons trate normal size and enhancement, without hydronephrosis. Peritoneum and bowel: Bowel loops demonstrate normal wall thickness and caliber. Moderate amount of stool noted throughout the colon. No free fluid or air. Visualized portions of the appendix are norm al. No free fluid or inflammatory changes noted adjacent to the cecum. Nodes and vessels: No retroperitoneal or mesenteric adenopathy by size criteria. Aorta and inferior vena cava are normal in size. Miscellaneous: No ventral hernias. Umbilicus piercing noted. PELVIS: Genitourinary: Bladder wall thickness is normal. 3.3 cm left adnexal region cyst. Miscellaneous: No inguinal hernias or adenopathy. Bones: No suspicious bony lesions. No vertebral body compression fractures. 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 IMPRESSION: 1. No free fluid or free air. 2. No dilated loops of bowel. 3. No evidence of appendicitis. 4. No hydronephrosis. 5. Moderate fecal loading throughout the colon. Please correlate with clinical data. Reviewed by: Elba Enriquez MD, PhD on 09/23/2020 8:16 PM PST Approved by: Elba Enriquez MD, PhD on 09/23/2020 8:16 PM PST Station ID: [id number]
[2020-09-23 20:32] VITALS: BP 124/71
[2020-09-23 20:35] LABS: BILIRUBIN,URINE NEGATIVE (NEGATIVE); GLUCOSE, URINE (UA) NEGATIVE (NEGATIVE); KETONES,URINE (UA) NEGATIVE (NEGATIVE); LEUKOCYTE ESTERASE, URINE MODERATE (NEGATIVE); NITRITE,URINE NEGATIVE (NEGATIVE); OCCULT BLOOD,URINE SMALL (NEGATIVE); PH,URINE 6.5 PH (5.0-7.5); PROTEIN,URINE NEGATIVE (NEGATIVE); UROBILINOGEN,URINE 0.2 (NORMAL) E.U./dL (NORMAL)
[2020-09-23 20:36] LABS: CLARITY,URINE HAZY (CLEAR)
[2020-09-23 20:38] LABS: HCG UR QUAL NEGATIVE
[2020-09-23 20:44] LABS: BACTERIA,URINE Few /HPF (None Seen); SQUAMOUS EPITHELIAL CELL,UR MOD Squamous (<= Few)
[2020-09-23] MEDS ORDERED: levoFLOXacin 250 MG TABLET PO STA (20:51)
== END 2020-09-23 21:10 | disposition home or self-care (01) ==
LOC: ED 18:28
DX: N12 Tubulo-interstitial nephritis, not specified as acute or chronic (principal); B37.2 Candidiasis of skin and nail; Z87.440 Personal history of urinary (tract) infections
CPT/HCPCS: 36415; 74177; 80053; 81001; 81025; 83690; 85025; 96361; 96374; 96375; 99283; 99284; A9270; Q9967; 81003; 87086

== ENCOUNTER 2021-02-18 11:39 | Emergency (ER) | payer OTHER ==
[2021-02-18 11:57] VITALS: BP 132/65
--- NOTE | 2021-02-18 12:44 | XRAY Report ---
PROCEDURE: Ankle 3 View RT INDICATIONS: Trauma TECHNIQUE: 3 views of the ankle were acquired. COMPARISON: None. FINDINGS: Bones: No fractures or dislocations. Ankle mortise is normally aligned. No suspicious bony lesions . Soft tissues: No tibiotalar joint effusion. Achilles tendon appears normal. IMPRESSION: No acute finding. Reviewed by: Shane Velez MD on 02/18/2021 12:42 PM PDT Approved by: Shane Velez MD on 02/18/2021 12:42 PM PDT Station ID: [id number]
--- NOTE | 2021-02-18 12:59 | ED Physician Documentation ---
History of Present Illness - Stated complaint Stated Complaint: R ANKLE INJ - Chief complaint Chief Complaint: Trauma Ext - Additonal information Additional information: 25-year-old female presents to the emergency department for evaluation of acute right ankle pain. She was descending some stairs and missed a stair and inverted her right ankle. She has previously injured this ankle in the past but this feels different than her typical sprains. Did not strike her head no loss of consciousness. She has been having difficulty bearing weight secondary to the swelling on the lateral malleollar area Review of Systems Constitutional: reports: Reviewed and negative Ears: reports: Reviewed and negative Nose: reports: Reviewed and negative Throat: reports: Reviewed and negative Cardiac: reports: Reviewed and negative Respiratory: reports: Reviewed and negative GI: reports: Reviewed and negative : reports: Reviewed and negative Musculoskeletal: reports: Extremity pain, Joint swelling PD PAST MEDICAL HISTORY - Past Medical History Past Medical History: Yes Cardiovascular: None Respiratory: None Neuro: None Endocrine/Autoimmune: None GI: None 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 HEENT: None Psych: None Musculoskeletal: None - Past Surgical History Past Surgical History: No - Present Medications Home Medications: Ambulatory Orders Medication Instructions Recorded Confirmed Norelgestromin/Ethin.estradiol 1 each TD DAILY 02/18/21 02/18/21 [Xulane 150-35 Mcg/Day Patch] - Allergies Allergies/Adverse Reactions: Allergies Allergy/AdvReac Type Severity Reaction Status Date / Time No Known Drug Allergies Allergy Verified 02/18/21 11:58 - Social History Does the pt smoke?: No Smoking Status: Never smoker Does the pt drink ETOH?: Yes Does the pt have substance abuse?: No - Immunizations Immunizations are current?: Yes - POLST Patient has POLST: No PD ED PE EXPANDED - General General: Alert, No acute distress - Extremities Extremities: Right ankle (Swelling and tenderness of the right lateral malleolus as well as tenderness superior to that at the distal fibula. No ecchymosis. Full range of motion though somewhat painful. No tenderness of the Achilles tendon. No tenderness of the forefoot or midfoot. 2+ DP pulse.) Results - Vitals Vitals: Vital Signs - 24 hr 02/18/21 11:53 Temperature 36.4 C L Heart Rate 96 Respiratory 16 Rate Blood Pressure 132/65 H O2 Saturation 98 Oxygen O2 Source Room air - Rads (name of study) Right ankle x-ray Radiology: Final report received (No acute fracture or dislocation.) PD MEDICAL DECISION MAKING - ED course Complexity details: reviewed results, d/w patient ED course: [id number] female presents the emergency department for evaluation of acute right lateral pain after an inversion injury yesterday evening. There is some tenderness and swelling to the lateral malleoli area. X-ray is unrevealing but patient has difficulty bearing weight. I suspect a moderate sprain. Patient will be given an Aircast as well as crutches. For discomfort. If not markedly improved in 7 to 10 days then repeat imaging should be considered. Departure - Departure Disposition: 01 Home, Self Care Clinical Impression: Moderate right ankle sprain Qualifiers: Encounter type: initial encounter Qualified Code(s): S93.401A - Sprain of unspecified ligament of right ankle, initial encounter Condition: Stable Record reviewed to determine appropriate education?: Yes Instructions: ED Splint Ankle Stirrup, ED Sprain Ankle W X Ray Follow-Up: MACARENA JIANG DO [Primary Care Provider] - Comments: You were seen today in the ER for right ankle pain after an inversion injury last night. As we discussed the x-ray does not show any obvious fractures but you have most likely sprained the ankle. I do recommend that you wear the stirrup splint when out of bed. Use crutches to help reduce weightbearing on the ankle. Ibuprofen or Tylenol [id number] for discomfort. Most sprains will begin to improve with conservative therapy over the first 7 to 10 days. If your symptoms are not markedly better in your ability to bear weight on the foot is not improved you should discuss with your primary doctor. You may benefit from physical therapy or repeat imaging to rule out an occult fracture
== END 2021-02-18 13:21 | disposition home or self-care (01) ==
LOC: ED 11:39
DX: S93.401A Sprain of unspecified ligament of right ankle, initial encounter (principal); W10.9XXA Fall (on) (from) unspecified stairs and steps, initial encounter
CPT/HCPCS: 99282; 99283

== ENCOUNTER 2021-04-26 23:23 | Emergency (ER) | payer OTHER ==
--- NOTE | 2021-04-27 01:21 | ED Physician Documentation ---
PD HPI URI - Stated complaint Stated Complaint: SOA, COUGH, CHEST PX - Chief complaint Chief Complaint: Resp - History obtained from History obtained from: Patient - History of Present Illness Timing - onset: How many days ago (2) Timing duration: Days (2) Timing details: Abrupt onset, Still present Associated symptoms: Nasal congestion, Dry cough. No: Fever, Chest pain, NVD Contributing factors: No: Sick contact, Unimmunized, COPD / asthma Recently seen: Not recently seen Review of Systems Constitutional: reports: Myalgias. 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 HEENT: None Psych: None Musculoskeletal: None - Past Surgical History Past Surgical History: No - Present Medications Home Medications: Ambulatory Orders Medication Instructions Recorded Confirmed Norelgestromin/Ethin.estradiol 1 each TD DAILY 02/18/21 02/18/21 [Xulane 150-35 Mcg/Day Patch] Albuterol Sulf [Ventolin Hfa 2 - 3 puffs INH Q4HR PRN #1 inhaler 04/27/21 Inhaler] Benzonatate [Tessalon] 100 mg PO TID PRN #20 cap 04/27/21 Norelgestromin/Ethin.estradiol 1 patch TOP 04/27/21 [Xulane 150-35 Mcg/Day Patch] dexAMETHasone [Decadron] 4 mg PO DAILY #5 tablet 04/27/21 diphenhydrAMINE ELIXIR [Benadryl 25 mg PO Q6H PRN #240 ml 04/27/21 Elixir] - Allergies Allergies/Adverse Reactions: Allergies Allergy/AdvReac Type Severity Reaction Status Date / Time No Known Drug Allergies Allergy Verified 04/26/21 23:35 - Social History Does the pt smoke?: No Smoking Status: Never smoker Does the pt drink ETOH?: Yes Does the pt have substance abuse?: No - Immunizations Immunizations are current?: Yes - POLST Patient has POLST: No PD ED PE NORMAL - Vitals Vital signs reviewed: Yes - General General: Alert and oriented X 3, Well developed/nourished - HEENT HEENT: Moist mucous membranes, Pharynx benign - Neck Neck: Supple, no meningeal sign, No adenopathy - Cardiac Cardiac: RRR, No murmur - Respiratory Respiratory: Clear bilaterally (with just some central exp wheezes scattered. ) - Abdomen Abdomen: Soft, Non tender - Derm Derm: Normal color, Warm and dry - Extremities Extremities: No edema, No calf tenderness / cord - Neuro Neuro: Alert and oriented X 3, No motor deficit, Normal speech Results - Vitals Vitals: Oxygen O2 Source Room air - Rads (name of study) chest xray Radiology: Prelim report reviewed (no infiltrates), See rad report PD MEDICAL DECISION MAKING - ED course Complexity details: considered differential (vaccinated and having wheezy cough; hopefully more RSV or such, but will test for COVID.), d/w patient Departure - Departure Disposition: 01 Home, Self Care Clinical Impression: Upper respiratory infection Qualifiers: URI type: unspecified URI Qualified Code(s): J06.9 - Acute upper respiratory infection, unspecified Condition: Stable Record reviewed to determine appropriate education?: Yes Instructions: ED Upper Resp Infec No Abx Tx Follow-Up: MACARENA JIANG DO [Primary Care Provider] - Prescriptions: Albuterol Sulf [Ventolin Hfa Inhaler] 2 - 3 puffs INH Q4HR PRN #1 inhaler PRN Reason: Shortness Of Air/Wheezing diphenhydrAMINE ELIXIR [Benadryl Elixir] 25 mg PO Q6H PRN #240 ml PRN Reason: Cough dexAMETHasone [Decadron] 4 mg PO DAILY #5 tablet Benzonatate [Tessalon] 100 mg PO TID PRN #20 cap PRN Reason: Cough Comments: Use the albuterol inhaler 2 to 3 puffs 4 times a day for the next several days to week to decrease cough and improve breathing and aeration. Decadron steroid daily for 5 more days to reduce airway inflammation and therefore less coughing and better breathing as well. Tessalon if needed for cough. You can also use diphenhydramine liquid for cough and will also help with some of the upper airway congestion. You have a Covid test pending. You need to self quarantine until the result is done and negative. Do not leave your house. Do not get near anybody. The results should be done in 48 to 72 hours, but sometimes longer. We will call with a positive result, the fastest way to get a negative result for confirmation though is to go to the hospital website at [email or web address], click on the my [email or web address] tab and sign up for the patient portal. If any friends or family get sick and would like to have a Covid test done, but do not have signs or symptoms that would necessitate being hospitalized, we encourage testing through our coronavirus swabbing station, call [phone] to schedule an appointment. Stay off work for the next 2 to 3 days while you are improving on illness. This will give an opportunity for your Covid test result. 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 If your Covid test is negative, then you may resume work after a few days if you are feeling better. I transmitted your prescriptions to [facility] in [place]. Forms: Activity restrictions Discharge Date/Time: 04/27/21 02:16
[2021-04-27] MEDS ORDERED: diphenhydrAMINE ELIXIR 25 MG/10 ML UDC PO STA (01:37)
[2021-04-27] MEDS ORDERED: ALBUTEROL 1 PUFF INH STA (01:37)
[2021-04-27] MEDS ORDERED: DEXAMETHASONE 10 MG/ML VIAL PO STA (01:37)
[2021-04-27] MEDS ORDERED: BENZONATATE 100 MG CAPSULE PO STA (01:37)
[2021-04-27] MEDS ORDERED: CHERRY SYRUP 10 ML UDC PO ONE (01:37)
[2021-04-27 02:19] VITALS: BP 133/70
--- NOTE | 2021-04-27 07:21 | XRAY Report ---
PROCEDURE: Chest 1 View X-Ray INDICATIONS: cough and chest pain TECHNIQUE: One view of the chest was acquired. COMPARISON: None FINDINGS: Surgical changes and devices: None. Lungs and pleura: No pleural effusions or pneumothorax. Lungs are clear. Mediastinum: Mediastinal contours appear normal. Heart size is normal. Bones and chest wall: No suspicious bony lesions. Overlying soft tissues appear unremarkable. IMPRESSION: No acute cardiopulmonary disease process. Reviewed by: Elba Enriquez MD, PhD on 04/27/2021 7:19 AM PDT Approved by: Elba Enriquez MD, PhD on 04/27/2021 7:19 AM PDT Station ID: [id number]
== END 2021-04-27 02:16 | disposition home or self-care (01) ==
LOC: ED 23:23
DX: J06.9 Acute upper respiratory infection, unspecified (principal); Z20.822 Contact with and (suspected) exposure to COVID-19
CPT/HCPCS: 71045; 87635; 94640; 94664; 99283; 99284; A9270

== ENCOUNTER 2022-05-31 19:18 | Emergency (ER) | payer OTHER ==
--- OUTSIDE RECORDS SUMMARY | 2022-05-31 19:25 | EXTERNAL MEDICAL SUMMARY RPT | Continuity of Care Document ---
:1995 Author Organization [place] Address [address] [place] [id number] Phone Allergies No information. Encounters No information. Functional Status No information. Immunizations No information. Medications No information. Problems No information. Procedures date description facility [id number] [facility] Results/Labs test date author facility value unit interpret ation Result panel 1 (unknown) (no (unknown) (unknown) (no value) (units (unk nown) date) unknown) (unknown) (no (unknown) (unknown) [address] [place] [address] (units (unknown) date) unknown) (unknown) (no (unknown) (unknown) [place], [place] (units ( unknown) date) [id number] unknown) (unknown) (no (unknown) (unknown) [facility] (units (unknown) date) unknown) (unknown) (no (unknown) (unknown) Signed (units (unkno wn) date) unknown) (unknown) (no (unknown) (unknown) XRay Report (units (un known) date) unknown) (unknown) (no (unknown) (unknown) (no value) (units (unk nown) date) unknown) (unknown) (no (unknown) (unknown) 03/13/22 (units (unkno wn) date) unknown) (unknown) (no (unknown) (unknown) Approved by: (units (u nknown) date) sara Villarreal M.D. on 03/13/2022 at 14:29 (unknown) (no (unknown) (unknown) Bones: No (units (unkn own) date) fractures or unknown) dislocations. No suspicious bony lesions. (unknown) (no (unknown) (unknown) COMPARISON: (units (un known) date) None. unknown) (unknown) (no (unknown) (unknown) Dictated by: (units (u nknown) date) sonali Villarreal) M.D. on 03/13/2022 at 14:29 (unknown) (no (unknown) (unknown) FINDINGS: (units (unkn own) date) unknown) (unknown) (no (unknown) (unknown) IMPRESSION: No (units (unknown) date) acute fracture. unknown) No osseous lesion. If symptoms and/or clinical (unknown) (no (unknown) (unknown) INDICATIONS: (units (u nknown) date) pain after unknown) hyperextension (unknown) (no (unknown) (unknown) MRI, or bone (units (u nknown) date) scan) may be unknown) helpful for further assessment. (unknown) (no (unknown) (unknown) Soft tissues: No (units (unknown) date) joint effusion. unknown) No suspicious soft tissue calcifications. (unknown) (no (unknown) (unknown) TECHNIQUE: 3 (units (u nknown) date) views of the knee unknown) were acquired. (unknown) (no (unknown) (unknown) for pathology (units ( unknown) date) persist, further unknown) assessment with repeat, or advanced imaging (unknown) (no (unknown) (unknown) (e.g., CT, (units (unk nown) date) unknown) (unknown) (no (unknown) (unknown) [id number] (units (unkn own) date) unknown) (unknown) (no (unknown) (unknown) Accession (units (unkn own) date) Number: unknown) [id number] (unknown) (no (unknown) (unknown) Age/Sex: 26 / F (units (unknown) date) Date of Service: unknown) (unknown) (no (unknown) (unknown) : 1995 (units (unknown) date) Acct:[id number] unknown) (unknown) (no (unknown) (unknown) Loc: ED (units (unkno wn) date) unknown) (unknown) (no (unknown) (unknown) Ordering (units (unkno wn) date) Provider: unknown) Fawn Anguiano D.O. (unknown) (no (unknown) (unknown) PROCEDURE: XR (units ( unknown) date) KNEE LT 3V unknown) (unknown) (no (unknown) (unknown) Patient: (units (unkno wn) date) Cony Melo L unknown) MR#: [id number] (unknown) (no (unknown) (unknown) Procedure: XR (units ( unknown) date) knee LT 3V unknown) (unknown) (no (unknown) (unknown) suspicion (units (unkn own) date) unknown) Result panel 2 (unknown) (no (unknown) (unknown) (no value) (units (unk nown) date) unknown) (unknown) (no (unknown) (unknown) Radiologist's (units ( unknown) date) Impression: unknown) (unknown) (no (unknown) (unknown) Date of Service: (units (unknown) date) 03/13/22 unknown) (unknown) (no (unknown) (unknown) (no value) (units (unk nown) date) unknown) (unknown) (no (unknown) (unknown) <Electronically (units (unknown) date) signed by Rl unknown) P.A-C Fady> (unknown) (no (unknown) (unknown) 03/13/22 1700 (units ( unknown) date) unknown) (unknown) (no (unknown) (unknown) ED Orders (units (unkn own) date) unknown) (unknown) (no (unknown) (unknown) Emergency Report (units (unknown) date) unknown) (unknown) (no (unknown) (unknown) [facility] (units (unknown) date) [address] [place] [address] unknown) [place] [address] (unknown) (no (unknown) (unknown) Vital Signs - 8 hr (units (unknown) date) unknown) (unknown) (no (unknown) (unknown) (no value) (units (unk nown) date) unknown) (unknown) (no (unknown) (unknown) 03/13/22 (units (unkno wn) date) unknown) (unknown) (no (unknown) (unknown) Acute knee pain (units (unknown) date) unknown) (unknown) (no (unknown) (unknown) Auscultation:?tyrel (units (unknown) date) r to auscultation unknown) bilaterally (unknown) (no (unknown) (unknown) Ears:?hearing (units ( unknown) date) grossly normal unknown) bilaterally (unknown) (no (unknown) (unknown) Face and (units (unkno wn) date) sinus:?normal unknown) facial exam and sinuses nontender (unknown) (no (unknown) (unknown) Mouth:?oral (units (un known) date) mucosae normal unknown) (unknown) (no (unknown) (unknown) Nose:?external (units (unknown) date) nose normal unknown) (unknown) (no (unknown) (unknown) Rhythm:?regular (units (unknown) date) rhythm unknown) (unknown) (no (unknown) (unknown) Throat:?posterior (units (unknown) date) oropharynx normal unknown) (unknown) (no (unknown) (unknown) (e.g., CT, (units (unk nown) date) unknown) (unknown) (no (unknown) (unknown) [id number] (units (unkno wn) date) unknown) (unknown) (no (unknown) (unknown) 03/13/22 14:13 (units (unknown) date) unknown) (unknown) (no (unknown) (unknown) 14:11 03/13/22 (units (unknown) date) unknown) (unknown) (no (unknown) (unknown) 15:25 03/13/22 (units (unknown) date) unknown) (unknown) (no (unknown) (unknown) 15:26 (units (unkno wn) date) unknown) (unknown) (no (unknown) (unknown) 26-year-old female (units (unknown) date) with no reported unknown) past medical history presents to the ED (unknown) (no (unknown) (unknown) ? (units (unkno wn) date) unknown) (unknown) (no (unknown) (unknown) Activity (units (unkno wn) date) Restrictions/Additi unknown) onal Instructions: (unknown) (no (unknown) (unknown) Age/Sex: 26 / F (units (unknown) date) unknown) (unknown) (no (unknown) (unknown) Allergic/Immunolog (units (unknown) date) ic unknown) (unknown) (no (unknown) (unknown) Allergic/Immunolog (units (unknown) date) ic: Denies unknown) urticaria, Denies throat swelling and Denies (unknown) (no (unknown) (unknown) Approved by: (units (u nknown) date) Mahesh Fuentes M.D. unknown) on 03/13/2022 at 14:29 ? (unknown) (no (unknown) (unknown) Blood Pressure (units (unknown) date) 119/67 03/13/22 unknown) 14:11 (unknown) (no (unknown) (unknown) Blood Pressure (units (unknown) date) 118/73 unknown) (unknown) (no (unknown) (unknown) Blood Pressure (units (unknown) date) 119/67 unknown) (unknown) (no (unknown) (unknown) Bones:? No (units (unk nown) date) fractures or unknown) dislocations.? No suspicious bony lesions.? (unknown) (no (unknown) (unknown) COMPARISON:? None. (units (unknown) date) unknown) (unknown) (no (unknown) (unknown) Cardio (units (unkno wn) date) unknown) (unknown) (no (unknown) (unknown) Cardiovascular (units (unknown) date) unknown) (unknown) (no (unknown) (unknown) Cardiovascular: (units (unknown) date) Denies chest pain, unknown) Denies irregular heart rhythm, Denies (unknown) (no (unknown) (unknown) Chief Complaint: (units (unknown) date) Extremity Injury, unknown) Lower (unknown) (no (unknown) (unknown) Clinical (units (unkno wn) date) Impression: unknown) (unknown) (no (unknown) (unknown) Comments: (units (unkn own) date) unknown) (unknown) (no (unknown) (unknown) Const (units (unkno wn) date) unknown) (unknown) (no (unknown) (unknown) Constitutional (units (unknown) date) unknown) (unknown) (no (unknown) (unknown) Constitutional: (units (unknown) date) Denies chills, unknown) Denies fatigue, Denies fever(s), Denies frequent (unknown) (no (unknown) (unknown) Course (units (unkno wn) date) unknown) (unknown) (no (unknown) (unknown) : 1995 (units (unknown) date) Acct:[id number] unknown) (unknown) (no (unknown) (unknown) Denies frequent (units (unknown) date) falls, Denies loss unknown) of vision, Denies numbness, Denies tingling (unknown) (no (unknown) (unknown) Denies loss of (units (unknown) date) vision unknown) (unknown) (no (unknown) (unknown) Denies numbness (units (unknown) date) and Denies tingling unknown) (unknown) (no (unknown) (unknown) Departure (units (unkn own) date) unknown) (unknown) (no (unknown) (unknown) Dictated by: (units (u nknown) date) Mahesh Fuentes M.D. unknown) on 03/13/2022 at 14:29 ? ? (unknown) (no (unknown) (unknown) Discharge Plan (units (unknown) date) unknown) (unknown) (no (unknown) (unknown) ENT (units (unkno wn) date) unknown) (unknown) (no (unknown) (unknown) ER Physician: (units ( unknown) date) Rl Shrestha P.A-C unknown) (unknown) (no (unknown) (unknown) Ears, Nose, Mouth, (units (unknown) date) and Throat: Denies unknown) change in voice, Denies dizziness, Denies (unknown) (no (unknown) (unknown) Effort + (units (unkno wn) date) Inspection:?normal unknown) respiratory effort (unknown) (no (unknown) (unknown) Endocrine (units (unkn own) date) unknown) (unknown) (no (unknown) (unknown) Endocrine: Denies (units (unknown) date) fatigue, Denies unknown) flushing and Denies palpitations (unknown) (no (unknown) (unknown) Exam (units (unkno wn) date) unknown) (unknown) (no (unknown) (unknown) Exam Narrative: (units (unknown) date) unknown) (unknown) (no (unknown) (unknown) Extremity x-ray (units (unknown) date) #1: unknown) (unknown) (no (unknown) (unknown) Eyes (units (unkno wn) date) unknown) (unknown) (no (unknown) (unknown) Eyes: Denies (units (u nknown) date) change in vision, unknown) Denies eye discharge, Denies irritation and (unknown) (no (unknown) (unknown) FINDINGS:? (units (unk nown) date) unknown) (unknown) (no (unknown) (unknown) Following that, (units (unknown) date) patient has unknown) experienced knee pain, both in the front and the (unknown) (no (unknown) (unknown) Full range of (units ( unknown) date) motion. Gait unknown) normal. Neurovascularly intact. (unknown) (no (unknown) (unknown) Gastrointestinal (units (unknown) date) unknown) (unknown) (no (unknown) (unknown) Gastrointestinal: (units (unknown) date) Denies abdominal unknown) pain, Denies change in bowel habits, Denies (unknown) (no (unknown) (unknown) General (units (unkno wn) date) unknown) (unknown) (no (unknown) (unknown) General:?appearanc (units (unknown) date) e normal, both eyes unknown) and all related structures (unknown) (no (unknown) (unknown) General:?cooperati (units (unknown) date) ve, healthy unknown) appearing and comfortable (unknown) (no (unknown) (unknown) General:?patient (units (unknown) date) alert, patient unknown) awake and patient oriented x3 (unknown) (no (unknown) (unknown) Genitourinary (units ( unknown) date) unknown) (unknown) (no (unknown) (unknown) Genitourinary: (units (unknown) date) Denies hematuria, unknown) Denies flank pain, Denies urinary incontinence (unknown) (no (unknown) (unknown) HENMT (units (unkno wn) date) unknown) (unknown) (no (unknown) (unknown) HPI - Extremity (units (unknown) date) Injury (Lower) unknown) (unknown) (no (unknown) (unknown) HPI Narrative: (units (unknown) date) unknown) (unknown) (no (unknown) (unknown) Head:?normal to (units (unknown) date) inspection unknown) (unknown) (no (unknown) (unknown) Hematologic/Lympha (units (unknown) date) tic unknown) (unknown) (no (unknown) (unknown) Hematologic/Lympha (units (unknown) date) tic: Denies easy unknown) bruising (unknown) (no (unknown) (unknown) History of Present (units (unknown) date) Illness unknown) (unknown) (no (unknown) (unknown) IMPRESSION:? No (units (unknown) date) acute fracture. No unknown) osseous lesion. If symptoms and/or clinical (unknown) (no (unknown) (unknown) INDICATIONS:? pain (units (unknown) date) after unknown) hyperextension (unknown) (no (unknown) (unknown) Imaging Data (units (u nknown) date) unknown) (unknown) (no (unknown) (unknown) Initial Vital (units ( unknown) date) Signs unknown) (unknown) (no (unknown) (unknown) Initial Vital (units ( unknown) date) Signs: unknown) (unknown) (no (unknown) (unknown) Instructions: DI (units (unknown) date) for Knee Sprain unknown) (unknown) (no (unknown) (unknown) Integumentary/Armstrong (units (unknown) date) sts unknown) (unknown) (no (unknown) (unknown) Left knee pain. No (units (unknown) date) tingling, numbness, unknown) weakness (unknown) (no (unknown) (unknown) MDM - Extremity (units (unknown) date) Injury (Lower) unknown) (unknown) (no (unknown) (unknown) MDM Narrative (units ( unknown) date) unknown) (unknown) (no (unknown) (unknown) MRI, or bone scan) (units (unknown) date) may be helpful for unknown) further assessment. (unknown) (no (unknown) (unknown) Medical decision (units (unknown) date) making narrative: unknown) (unknown) (no (unknown) (unknown) Mode of arrival: (units (unknown) date) Ambulatory unknown) (unknown) (no (unknown) (unknown) Musculoskeletal (units (unknown) date) unknown) (unknown) (no (unknown) (unknown) Musculoskeletal: (units (unknown) date) Denies back pain, unknown) Denies muscle weakness, Denies neck pain, (unknown) (no (unknown) (unknown) Narrative (units (unkn own) date) unknown) (unknown) (no (unknown) (unknown) Neck (units (unkno wn) date) unknown) (unknown) (no (unknown) (unknown) Neck:?normal (units (u nknown) date) visual inspection unknown) and no lymphadenopathy noted (unknown) (no (unknown) (unknown) Neuro (units (unkno wn) date) unknown) (unknown) (no (unknown) (unknown) Neurologic (units (unk nown) date) unknown) (unknown) (no (unknown) (unknown) Neurologic: Denies (units (unknown) date) behavioral changes, unknown) Denies confusion, Denies dizziness, (unknown) (no (unknown) (unknown) Ordered: (units (unkno wn) date) unknown) (unknown) (no (unknown) (unknown) Orders (units (unkno wn) date) unknown) (unknown) (no (unknown) (unknown) Oxygen Delivery (units (unknown) date) Method 03/13/22 unknown) 14:11 (unknown) (no (unknown) (unknown) Oxygen Delivery (units (unknown) date) Method unknown) (unknown) (no (unknown) (unknown) Oxygen Delivery (units (unknown) date) Method Room Air unknown) (unknown) (no (unknown) (unknown) PROCEDURE:? XR (units (unknown) date) KNEE LT 3V unknown) (unknown) (no (unknown) (unknown) Patient (units (unkno wn) date) Disposition: Home unknown) (unknown) (no (unknown) (unknown) Patient History (units (unknown) date) unknown) (unknown) (no (unknown) (unknown) Patient denies (units (unknown) date) numbness, tingling, unknown) weakness. (unknown) (no (unknown) (unknown) Patient: (units (unkno wn) date) Cony Melo unknown) MR#: [id number] (unknown) (no (unknown) (unknown) Please follow-up (units (unknown) date) with your PCP, if unknown) your symptoms do not resolve in the next few (unknown) (no (unknown) (unknown) Psychiatric (units (un known) date) unknown) (unknown) (no (unknown) (unknown) Psychiatric: Denies (units (unknown) date) anxiety, Denies unknown) behavioral changes, Denies confusion, Denies (unknown) (no (unknown) (unknown) Pulse Oximetry (units (unknown) date) unknown) (unknown) (no (unknown) (unknown) Pulse Oximetry 98 (units (unknown) date) 03/13/22 14:11 unknown) (unknown) (no (unknown) (unknown) Pulse Oximetry 98 (units (unknown) date) 100 100 unknown) (unknown) (no (unknown) (unknown) Pulse Rate (units (unk nown) date) unknown) (unknown) (no (unknown) (unknown) Pulse Rate 92 H (units (unknown) date) 03/13/22 14:11 unknown) (unknown) (no (unknown) (unknown) Pulse Rate 92 H 73 (units (unknown) date) unknown) (unknown) (no (unknown) (unknown) ROS Unobtainable: (units (unknown) date) All systems unknown) reviewed + are unremarkable except as noted in HPI (unknown) (no (unknown) (unknown) Rate:?regular rate (units (unknown) date) unknown) (unknown) (no (unknown) (unknown) Resp (units (unkno wn) date) unknown) (unknown) (no (unknown) (unknown) Respiratory (units (un known) date) unknown) (unknown) (no (unknown) (unknown) Respiratory Rate (units (unknown) date) unknown) (unknown) (no (unknown) (unknown) Respiratory Rate (units (unknown) date) 20 03/13/22 14:11 unknown) (unknown) (no (unknown) (unknown) Respiratory Rate (units (unknown) date) 20 unknown) (unknown) (no (unknown) (unknown) Respiratory: Denies (units (unknown) date) cough, Denies unknown) dyspnea, Denies dyspnea on exertion and Denies (unknown) (no (unknown) (unknown) Review of Systems (units (unknown) date) unknown) (unknown) (no (unknown) (unknown) Signed By: (units (unk nown) date) unknown) (unknown) (no (unknown) (unknown) Skin/Breast: (units (u nknown) date) Denies pruritus, unknown) Denies erythema, Denies rash and Denies wounds (unknown) (no (unknown) (unknown) Soft tissues:? No (units (unknown) date) joint effusion.? No unknown) suspicious soft tissue calcifications.? (unknown) (no (unknown) (unknown) Source: patient (units (unknown) date) unknown) (unknown) (no (unknown) (unknown) Stated Complaint: (units (unknown) date) 'bent knee unknown) backwards' (unknown) (no (unknown) (unknown) TECHNIQUE:? 3 (units ( unknown) date) views of the knee unknown) were acquired.? (unknown) (no (unknown) (unknown) Temperature (units (un known) date) unknown) (unknown) (no (unknown) (unknown) Temperature 97.8 F (units (unknown) date) 03/13/22 14:11 unknown) (unknown) (no (unknown) (unknown) Temperature 97.8 F (units (unknown) date) unknown) (unknown) (no (unknown) (unknown) Tenderness to (units (u nknown) date) palpation in the unknown) left popliteal region. No bruising, deformities. (unknown) (no (unknown) (unknown) Time Seen by (units (u nknown) date) Provider: 03/13/22 unknown) 15:25 (unknown) (no (unknown) (unknown) Vital Signs (units (un known) date) unknown) (unknown) (no (unknown) (unknown) Vital signs: (units (u nknown) date) unknown) (unknown) (no (unknown) (unknown) XR knee LT 3V Stat (units (unknown) date) unknown) (unknown) (no (unknown) (unknown) You were evaluated (units (unknown) date) in the ED today for unknown) a knee injury. Your x-ray did not show (unknown) (no (unknown) (unknown) acute findings. (units (unknown) date) Patient was unknown) discharged home with supportive care, ED return (unknown) (no (unknown) (unknown) and Denies (units (unk nown) date) orthopnea unknown) (unknown) (no (unknown) (unknown) and Denies urinary (units (unknown) date) urgency unknown) (unknown) (no (unknown) (unknown) and Denies (units (unk nown) date) weakness unknown) (unknown) (no (unknown) (unknown) and below (units (unkn own) date) unknown) (unknown) (no (unknown) (unknown) any fractures or (units (unknown) date) dislocations. 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 Patient unknown) endorses being able to bear weight and walk. (unknown) (no (unknown) (unknown) days. Return to (units (unknown) date) the ED if you unknown) experience numbness, tingling, weakness being (unknown) (no (unknown) (unknown) depression, Denies (units (unknown) date) homicidal ideation unknown) and Denies suicidal ideation (unknown) (no (unknown) (unknown) diarrhea, Denies (units (unknown) date) nausea and Denies unknown) vomiting (unknown) (no (unknown) (unknown) falls, Denies (units ( unknown) date) lethargy and Denies unknown) weakness (unknown) (no (unknown) (unknown) for pathology (units ( unknown) date) persist, further unknown) assessment with repeat, or advanced imaging (unknown) (no (unknown) (unknown) for which you can (units (unknown) date) apply ice for the unknown) 1st 24 hours, followed by heat. You may (unknown) (no (unknown) (unknown) fracture/dislocati (units (unknown) date) on versus knee unknown) sprain. Knee x-ray was obtained without any (unknown) (no (unknown) (unknown) lightheadedness, (units (unknown) date) Denies unknown) palpitations, Denies dyspnea, Denies dyspnea on exertion (unknown) (no (unknown) (unknown) neck pain, Denies (units (unknown) date) sore throat and unknown) Denies throat swelling (unknown) (no (unknown) (unknown) precautions. (units (u nknown) date) Patient verbalized unknown) understanding. (unknown) (no (unknown) (unknown) status post a knee (units (unknown) date) injury sustained a unknown) few hours prior to arrival. Concern for (unknown) (no (unknown) (unknown) status post a knee (units (unknown) date) injury sustained a unknown) few hours prior to arrival. Patient works (unknown) (no (unknown) (unknown) suspicion (units (unkn own) date) unknown) (unknown) (no (unknown) (unknown) take ibuprofen for (units (unknown) date) the swelling, pain. unknown) A you may use a knee brace for support. (unknown) (no (unknown) (unknown) tobacco type: (units ( unknown) date) vaping unknown) (unknown) (no (unknown) (unknown) turn a patient (units (unknown) date) over to change him, unknown) when she felt her left knee hyperextend. (unknown) (no (unknown) (unknown) wheezing (units (unkno wn) date) unknown) Result panel 3 (unknown) (no (unknown) (unknown) (no value) (units (unk nown) date) unknown) (unknown) (no (unknown) (unknown) Radiologist's (units ( unknown) date) Impression: unknown) (unknown) (no (unknown) (unknown) Date of Service: (units (unknown) date) 03/13/22 unknown) (unknown) (no (unknown) (unknown) (no value) (units (unk nown) date) unknown) (unknown) (no (unknown) (unknown) <Electronically (units (unknown) date) signed by Fawn unknown) Annmarie D.O.> (unknown) (no (unknown) (unknown) <Electronically (units (unknown) date) signed by Fawn unknown) Annmarie D.O.> (unknown) (no (unknown) (unknown) <Electronically (units (unknown) date) signed by Rl unknown) P.A-C Fady> (unknown) (no (unknown) (unknown) 03/13/22 1700 (units ( unknown) date) unknown) (unknown) (no (unknown) (unknown) 03/14/222028 (units ( unknown) date) unknown) (unknown) (no (unknown) (unknown) ED Orders (units (unkn own) date) unknown) (unknown) (no (unknown) (unknown) Emergency Report (units (unknown) date) unknown) (unknown) (no (unknown) (unknown) [facility] (units (unknown) date) [address] unknown) [place] [address] (unknown) (no (unknown) (unknown) Vital Signs - 8 hr (units (unknown) date) unknown) (unknown) (no (unknown) (unknown) (no value) (units (unk nown) date) unknown) (unknown) (no (unknown) (unknown) 03/13/22 (units (unkno wn) date) unknown) (unknown) (no (unknown) (unknown) Acute knee pain (units (unknown) date) unknown) (unknown) (no (unknown) (unknown) Auscultation:?tyrel (units (unknown) date) r to auscultation unknown) bilaterally (unknown) (no (unknown) (unknown) Ears:?hearing (units ( unknown) date) grossly normal unknown) bilaterally (unknown) (no (unknown) (unknown) Face and (units (unkno wn) date) sinus:?normal unknown) facial exam and sinuses nontender (unknown) (no (unknown) (unknown) Mouth:?oral (units (un known) date) mucosae normal unknown) (unknown) (no (unknown) (unknown) Nose:?external (units (unknown) date) nose normal unknown) (unknown) (no (unknown) (unknown) Rhythm:?regular (units (unknown) date) rhythm unknown) (unknown) (no (unknown) (unknown) Throat:?posterior (units (unknown) date) oropharynx normal unknown) (unknown) (no (unknown) (unknown) <Fawn Anguiano, (units (unknown) date) DO - Last Filed: unknown) 03/14/22 20:28> (unknown) (no (unknown) (unknown) <Rl Shrestha PA-C (units (unknown) date) - Last Filed: unknown) 03/13/22 17:00> (unknown) (no (unknown) (unknown) <cosigner> (units (unk nown) date) unknown) (unknown) (no (unknown) (unknown) (e.g., CT, (units (unk nown) date) unknown) (unknown) (no (unknown) (unknown) [id number] (units (unkno wn) date) unknown) (unknown) (no (unknown) (unknown) 03/13/22 14:13 (units (unknown) date) unknown) (unknown) (no (unknown) (unknown) 14:11 03/13/22 (units (unknown) date) unknown) (unknown) (no (unknown) (unknown) 15:25 03/13/22 (units (unknown) date) unknown) (unknown) (no (unknown) (unknown) 15:26 (units (unkno wn) date) unknown) (unknown) (no (unknown) (unknown) 26-year-old female (units (unknown) date) with no reported unknown) past medical history presents to the ED (unknown) (no (unknown) (unknown) ? (units (unkno wn) date) unknown) (unknown) (no (unknown) (unknown) Activity (units (unkno wn) date) Restrictions/Additi unknown) onal Instructions: (unknown) (no (unknown) (unknown) Age/Sex: 26 / F (units (unknown) date) unknown) (unknown) (no (unknown) (unknown) Allergic/Immunolog (units (unknown) date) ic unknown) (unknown) (no (unknown) (unknown) Allergic/Immunolog (units (unknown) date) ic: Denies unknown) urticaria, Denies throat swelling and Denies (unknown) (no (unknown) (unknown) Approved by: (units (u nknown) date) Mahesh Fuentes M.D. unknown) on 03/13/2022 at 14:29 ? (unknown) (no (unknown) (unknown) Blood Pressure (units (unknown) date) 119/67 03/13/22 unknown) 14:11 (unknown) (no (unknown) (unknown) Blood Pressure (units (unknown) date) 118/73 unknown) (unknown) (no (unknown) (unknown) Blood Pressure (units (unknown) date) 119/67 unknown) (unknown) (no (unknown) (unknown) Bones:? No (units (unk nown) date) fractures or unknown) dislocations.? No suspicious bony lesions.? (unknown) (no (unknown) (unknown) COMPARISON:? None. (units (unknown) date) unknown) (unknown) (no (unknown) (unknown) Cardio (units (unkno wn) date) unknown) (unknown) (no (unknown) (unknown) Cardiovascular (units (unknown) date) unknown) (unknown) (no (unknown) (unknown) Cardiovascular: (units (unknown) date) Denies chest pain, unknown) Denies irregular heart rhythm, Denies (unknown) (no (unknown) (unknown) Chief Complaint: (units (unknown) date) Extremity Injury, unknown) Lower (unknown) (no (unknown) (unknown) Clinical (units (unkno wn) date) Impression: unknown) (unknown) (no (unknown) (unknown) Comments: (units (unkn own) date) unknown) (unknown) (no (unknown) (unknown) Const (units (unkno wn) date) unknown) (unknown) (no (unknown) (unknown) Constitutional (units (unknown) date) unknown) (unknown) (no (unknown) (unknown) Constitutional: (units (unknown) date) Denies chills, unknown) Denies fatigue, Denies fever(s), Denies frequent (unknown) (no (unknown) (unknown) Cosign (units (unkno wn) date) unknown) (unknown) (no (unknown) (unknown) Course (units (unkno wn) date) unknown) (unknown) (no (unknown) (unknown) : 1995 (units (unknown) date) Acct:[id number] unknown) (unknown) (no (unknown) (unknown) Denies frequent (units (unknown) date) falls, Denies loss unknown) of vision, Denies numbness, Denies tingling (unknown) (no (unknown) (unknown) Denies loss of (units (unknown) date) vision unknown) (unknown) (no (unknown) (unknown) Denies numbness (units (unknown) date) and Denies tingling unknown) (unknown) (no (unknown) (unknown) Departure (units (unkn own) date) unknown) (unknown) (no (unknown) (unknown) Dictated by: (units (u nknown) date) Mahesh Fuentes M.D. unknown) on 03/13/2022 at 14:29 ? ? (unknown) (no (unknown) (unknown) Discharge Plan (units (unknown) date) unknown) (unknown) (no (unknown) (unknown) ED Attending (units (u nknown) date) Cosignature unknown) Attestation: (unknown) (no (unknown) (unknown) ENT (units (unkno wn) date) unknown) (unknown) (no (unknown) (unknown) ER Physician: (units ( unknown) date) Fady,Hyma P.A-C unknown) (unknown) (no (unknown) (unknown) Ears, Nose, Mouth, (units (unknown) date) and Throat: Denies unknown) change in voice, Denies dizziness, Denies (unknown) (no (unknown) (unknown) Effort + (units (unkno wn) date) Inspection:?normal unknown) respiratory effort (unknown) (no (unknown) (unknown) Endocrine (units (unkn own) date) unknown) (unknown) (no (unknown) (unknown) Endocrine: Denies (units (unknown) date) fatigue, Denies unknown) flushing and Denies palpitations (unknown) (no (unknown) (unknown) Exam (units (unkno wn) date) unknown) (unknown) (no (unknown) (unknown) Exam Narrative: (units (unknown) date) unknown) (unknown) (no (unknown) (unknown) Extremity x-ray (units (unknown) date) #1: unknown) (unknown) (no (unknown) (unknown) Eyes (units (unkno wn) date) unknown) (unknown) (no (unknown) (unknown) Eyes: Denies (units (u nknown) date) change in vision, unknown) Denies eye discharge, Denies irritation and (unknown) (no (unknown) (unknown) FINDINGS:? (units (unk nown) date) unknown) (unknown) (no (unknown) (unknown) Following that, (units (unknown) date) patient has unknown) experienced knee pain, both in the front and the (unknown) (no (unknown) (unknown) Full range of (units ( unknown) date) motion. Gait unknown) normal. Neurovascularly intact. (unknown) (no (unknown) (unknown) Gastrointestinal (units (unknown) date) unknown) (unknown) (no (unknown) (unknown) Gastrointestinal: (units (unknown) date) Denies abdominal unknown) pain, Denies change in bowel habits, Denies (unknown) (no (unknown) (unknown) General (units (unkno wn) date) unknown) (unknown) (no (unknown) (unknown) General:?appearanc (units (unknown) date) e normal, both eyes unknown) and all related structures (unknown) (no (unknown) (unknown) General:?cooperati (units (unknown) date) ve, healthy unknown) appearing and comfortable (unknown) (no (unknown) (unknown) General:?patient (units (unknown) date) alert, patient unknown) awake and patient oriented x3 (unknown) (no (unknown) (unknown) Genitourinary (units ( unknown) date) unknown) (unknown) (no (unknown) (unknown) Genitourinary: (units (unknown) date) Denies hematuria, unknown) Denies flank pain, Denies urinary incontinence (unknown) (no (unknown) (unknown) HENMT (units (unkno wn) date) unknown) (unknown) (no (unknown) (unknown) HPI - Extremity (units (unknown) date) Injury (Lower) unknown) (unknown) (no (unknown) (unknown) HPI Narrative: (units (unknown) date) unknown) (unknown) (no (unknown) (unknown) Head:?normal to (units (unknown) date) inspection unknown) (unknown) (no (unknown) (unknown) Hematologic/Lympha (units (unknown) date) tic unknown) (unknown) (no (unknown) (unknown) Hematologic/Lympha (units (unknown) date) tic: Denies easy unknown) bruising (unknown) (no (unknown) (unknown) History of Present (units (unknown) date) Illness unknown) (unknown) (no (unknown) (unknown) I was immediately (units (unknown) date) available in the unknown) department for consultation. Documentation (unknown) (no (unknown) (unknown) IMPRESSION:? No (units (unknown) date) acute fracture. No unknown) osseous lesion. If symptoms and/or clinical (unknown) (no (unknown) (unknown) INDICATIONS:? pain (units (unknown) date) after unknown) hyperextension (unknown) (no (unknown) (unknown) Imaging Data (units (u nknown) date) unknown) (unknown) (no (unknown) (unknown) Initial Vital (units ( unknown) date) Signs unknown) (unknown) (no (unknown) (unknown) Initial Vital (units ( unknown) date) Signs: unknown) (unknown) (no (unknown) (unknown) Instructions: DI (units (unknown) date) for Knee Sprain unknown) (unknown) (no (unknown) (unknown) Integumentary/Armstrong (units (unknown) date) sts unknown) (unknown) (no (unknown) (unknown) Left knee pain. No (units (unknown) date) tingling, numbness, unknown) weakness (unknown) (no (unknown) (unknown) MDM - Extremity (units (unknown) date) Injury (Lower) unknown) (unknown) (no (unknown) (unknown) MDM Narrative (units ( unknown) date) unknown) (unknown) (no (unknown) (unknown) MRI, or bone scan) (units (unknown) date) may be helpful for unknown) further assessment. (unknown) (no (unknown) (unknown) Medical decision (units (unknown) date) making narrative: unknown) (unknown) (no (unknown) (unknown) Mode of arrival: (units (unknown) date) Ambulatory unknown) (unknown) (no (unknown) (unknown) Musculoskeletal (units (unknown) date) unknown) (unknown) (no (unknown) (unknown) Musculoskeletal: (units (unknown) date) Denies back pain, unknown) Denies muscle weakness, Denies neck pain, (unknown) (no (unknown) (unknown) Narrative (units (unkn own) date) unknown) (unknown) (no (unknown) (unknown) Neck (units (unkno wn) date) unknown) (unknown) (no (unknown) (unknown) Neck:?normal (units (u nknown) date) visual inspection unknown) and no lymphadenopathy noted (unknown) (no (unknown) (unknown) Neuro (units (unkno wn) date) unknown) (unknown) (no (unknown) (unknown) Neurologic (units (unk nown) date) unknown) (unknown) (no (unknown) (unknown) Neurologic: Denies (units (unknown) date) behavioral changes, unknown) Denies confusion, Denies dizziness, (unknown) (no (unknown) (unknown) Ordered: (units (unkno wn) date) unknown) (unknown) (no (unknown) (unknown) Orders (units (unkno wn) date) unknown) (unknown) (no (unknown) (unknown) Oxygen Delivery (units (unknown) date) Method 03/13/22 unknown) 14:11 (unknown) (no (unknown) (unknown) Oxygen Delivery (units (unknown) date) Method unknown) (unknown) (no (unknown) (unknown) Oxygen Delivery (units (unknown) date) Method Room Air unknown) (unknown) (no (unknown) (unknown) PROCEDURE:? XR (units (unknown) date) KNEE LT 3V unknown) (unknown) (no (unknown) (unknown) Patient (units (unkno wn) date) Disposition: Home unknown) (unknown) (no (unknown) (unknown) Patient History (units (unknown) date) unknown) (unknown) (no (unknown) (unknown) Patient denies (units (unknown) date) numbness, tingling, unknown) weakness. (unknown) (no (unknown) (unknown) Patient: (units (unkno wn) date) Cony Melo L unknown) MR#: [id number] (unknown) (no (unknown) (unknown) Please follow-up (units (unknown) date) with your PCP, if unknown) your symptoms do not resolve in the next few (unknown) (no (unknown) (unknown) Psychiatric (units (un known) date) unknown) (unknown) (no (unknown) (unknown) Psychiatric: Denies (units (unknown) date) anxiety, Denies unknown) behavioral changes, Denies confusion, Denies (unknown) (no (unknown) (unknown) Pulse Oximetry (units (unknown) date) unknown) (unknown) (no (unknown) (unknown) Pulse Oximetry 98 (units (unknown) date) 03/13/22 14:11 unknown) (unknown) (no (unknown) (unknown) Pulse Oximetry 98 (units (unknown) date) 100 100 unknown) (unknown) (no (unknown) (unknown) Pulse Rate (units (unk nown) date) unknown) (unknown) (no (unknown) (unknown) Pulse Rate 92 H (units (unknown) date) 03/13/22 14:11 unknown) (unknown) (no (unknown) (unknown) Pulse Rate 92 H 73 (units (unknown) date) unknown) (unknown) (no (unknown) (unknown) ROS Unobtainable: (units (unknown) date) All systems unknown) reviewed + are unremarkable except as noted in HPI (unknown) (no (unknown) (unknown) Rate:?regular rate (units (unknown) date) unknown) (unknown) (no (unknown) (unknown) Resp (units (unkno wn) date) unknown) (unknown) (no (unknown) (unknown) Respiratory (units (un known) date) unknown) (unknown) (no (unknown) (unknown) Respiratory Rate (units (unknown) date) unknown) (unknown) (no (unknown) (unknown) Respiratory Rate (units (unknown) date) 20 03/13/22 14:11 unknown) (unknown) (no (unknown) (unknown) Respiratory Rate (units (unknown) date) 20 unknown) (unknown) (no (unknown) (unknown) Respiratory: Denies (units (unknown) date) cough, Denies unknown) dyspnea, Denies dyspnea on exertion and Denies (unknown) (no (unknown) (unknown) Review of Systems (units (unknown) date) unknown) (unknown) (no (unknown) (unknown) Signed By: (units (unk nown) date) unknown) (unknown) (no (unknown) (unknown) Skin/Breast: (units (u nknown) date) Denies pruritus, unknown) Denies erythema, Denies rash and Denies wounds (unknown) (no (unknown) (unknown) Soft tissues:? No (units (unknown) date) joint effusion.? No unknown) suspicious soft tissue calcifications.? (unknown) (no (unknown) (unknown) Source: patient (units (unknown) date) unknown) (unknown) (no (unknown) (unknown) Stated Complaint: (units (unknown) date) 'bent knee unknown) backwards' (unknown) (no (unknown) (unknown) TECHNIQUE:? 3 (units ( unknown) date) views of the knee unknown) were acquired.? (unknown) (no (unknown) (unknown) Temperature (units (un known) date) unknown) (unknown) (no (unknown) (unknown) Temperature 97.8 F (units (unknown) date) 03/13/22 14:11 unknown) (unknown) (no (unknown) (unknown) Temperature 97.8 F (units (unknown) date) unknown) (unknown) (no (unknown) (unknown) Tenderness to (units (u nknown) date) palpation in the unknown) left popliteal region. No bruising, deformities. (unknown) (no (unknown) (unknown) Time Seen by (units (u nknown) date) Provider: 03/13/22 unknown) 15:25 (unknown) (no (unknown) (unknown) Visit Report (units (u nknown) date) Forms: Patient unknown) Portal/API (unknown) (no (unknown) (unknown) Vital Signs (units (un known) date) unknown) (unknown) (no (unknown) (unknown) Vital signs: (units (u nknown) date) unknown) (unknown) (no (unknown) (unknown) XR knee LT 3V Stat (units (unknown) date) unknown) (unknown) (no (unknown) (unknown) You were evaluated (units (unknown) date) in the ED today for unknown) a knee injury. Your x-ray did not show (unknown) (no (unknown) (unknown) acute findings. (units (unknown) date) Patient was unknown) discharged home with supportive care, ED return (unknown) (no (unknown) (unknown) and Denies (units (unk nown) date) orthopnea unknown) (unknown) (no (unknown) (unknown) and Denies urinary (units (unknown) date) urgency unknown) (unknown) (no (unknown) (unknown) and Denies (units (unk nown) date) weakness unknown) (unknown) (no (unknown) (unknown) and below (units (unkn own) date) unknown) (unknown) (no (unknown) (unknown) any fractures or (units (unknown) date) dislocations. 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 Patient unknown) endorses being able to bear weight and walk. (unknown) (no (unknown) (unknown) days. Return to (units (unknown) date) the ED if you unknown) experience numbness, tingling, weakness being (unknown) (no (unknown) (unknown) depression, Denies (units (unknown) date) homicidal ideation unknown) and Denies suicidal ideation (unknown) (no (unknown) (unknown) diarrhea, Denies (units (unknown) date) nausea and Denies unknown) vomiting (unknown) (no (unknown) (unknown) falls, Denies (units ( unknown) date) lethargy and Denies unknown) weakness (unknown) (no (unknown) (unknown) for pathology (units ( unknown) date) persist, further unknown) assessment with repeat, or advanced imaging (unknown) (no (unknown) (unknown) for which you can (units (unknown) date) apply ice for the unknown) 1st 24 hours, followed by heat. You may (unknown) (no (unknown) (unknown) fracture/dislocati (units (unknown) date) on versus knee unknown) sprain. Knee x-ray was obtained without any (unknown) (no (unknown) (unknown) has been reviewed. (units (unknown) date) I agree with unknown) assessment and plan. (unknown) (no (unknown) (unknown) lightheadedness, (units (unknown) date) Denies unknown) palpitations, Denies dyspnea, Denies dyspnea on exertion (unknown) (no (unknown) (unknown) neck pain, Denies (units (unknown) date) sore throat and unknown) Denies throat swelling (unknown) (no (unknown) (unknown) precautions. (units (u nknown) date) Patient verbalized unknown) understanding. (unknown) (no (unknown) (unknown) status post a knee (units (unknown) date) injury sustained a unknown) few hours prior to arrival. Concern for (unknown) (no (unknown) (unknown) status post a knee (units (unknown) date) injury sustained a unknown) few hours prior to arrival. Patient works (unknown) (no (unknown) (unknown) suspicion (units (unkn own) date) unknown) (unknown) (no (unknown) (unknown) take ibuprofen for (units (unknown) date) the swelling, pain. unknown) A you may use a knee brace for support. (unknown) (no (unknown) (unknown) tobacco type: (units ( unknown) date) vaping unknown) (unknown) (no (unknown) (unknown) turn a patient (units (unknown) date) over to change him, unknown) when she felt her left knee hyperextend. (unknown) (no (unknown) (unknown) wheezing (units (unkno wn) date) unknown) Social History No information. Vital Signs date measurement value units +0000 BP_diastolic BP_diastolic 80 mm[H g] +0000 BP_systolic BP_systolic 120 mm[Hg] +0000 heart_rate heart_rate 75 /min +0000 respiration_rate respiration_rate 16 /min +0000 temperature_metric temperature_metric 36.56 C +0000 temperature_standard temperature_standard 9 7.8 F +0000 weight_metric weight_metric 86.18 kg +0000 weight_standard weight_standard 189.99 lb
[2022-05-31] MEDS ORDERED: IBUPROFEN 800 MG TABLET PO STA (20:51)
[2022-05-31] MEDS ORDERED: BENZONATATE 100 MG CAPSULE PO STA (20:51)
--- NOTE | 2022-05-31 20:54 | ED Physician Documentation ---
History of Present Illness - Stated complaint Stated Complaint: CHEST PX/SRETHROAT/COUGH - Chief complaint Chief Complaint: Resp - History obtained from History obtained from: Patient - Additonal information Additional information: Previously healthy 26-year-old woman with history of 2 COVID vaccines developed a sore throat yesterday and today has cough, chest pain with coughing, fever to 101, she is lost her voice. She has body aches. No sick contacts or recent travel. Review of Systems Constitutional: reports: Fever, Chills, Myalgias Ears: denies: Ear pain Nose: denies: Rhinorrhea / runny nose Throat: reports: Sore throat Respiratory: reports: Cough. 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 : Other HEENT: None Psych: None Musculoskeletal: None - Past Surgical History Past Surgical History: No - Present Medications Home Medications: Ambulatory Orders Medication Instructions Recorded Confirmed Norelgestromin/Ethin.estradiol 1 each TD DAILY 02/18/21 02/18/21 [Xulane 150-35 Mcg/Day Patch] Albuterol Sulf [Ventolin Hfa 2 - 3 puffs INH Q4HR PRN #1 inhaler 04/27/21 Inhaler] Benzonatate [Tessalon] 100 mg PO TID PRN #20 cap 04/27/21 Norelgestromin/Ethin.estradiol 1 patch TOP 04/27/21 [Xulane 150-35 Mcg/Day Patch] dexAMETHasone [Decadron] 4 mg PO DAILY #5 tablet 04/27/21 diphenhydrAMINE ELIXIR [Benadryl 25 mg PO Q6H PRN #240 ml 04/27/21 Elixir] Benzonatate [Tessalon] 200 mg PO QID PRN #20 cap 05/31/22 HYDROcod/ACETAM 5/325 [[place] 5/325] 1 - 2 tab PO Q6H PRN #10 tablet 05/31/22 Ibuprofen [Motrin] 800 mg PO Q8H PRN #14 tablet 05/31/22 - Allergies Allergies/Adverse Reactions: Allergies Allergy/AdvReac Type Severity Reaction Status Date / Time No Known Drug Allergies Allergy Verified 05/31/22 19:35 - Social History Does the pt smoke?: No Smoking Status: Never smoker Does the pt drink ETOH?: Yes Does the pt have substance abuse?: No - Immunizations Immunizations are current?: Yes - POLST Patient has POLST: No PD ED PE NORMAL - Vitals Vital signs reviewed: Yes - General General: Alert and oriented X 3, No acute distress - HEENT HEENT: Other (Mildly red tonsillar pillars without exudates. Mildly laryngitic voice but very understandable. Supple neck without adenopathy.) - Neck Neck: Supple, no meningeal sign, No bony TTP - Cardiac Cardiac: RRR, No murmur - Respiratory Respiratory: No respiratory distress, Clear bilaterally - Abdomen Abdomen: Non tender - Back Back: No CVA TTP, No spinal TTP - Derm Derm: Normal color, Warm and dry - Extremities Extremities: No edema, No calf tenderness / cord - Neuro Neuro: Alert and oriented X 3, Normal speech Results - Vitals Vitals: Vital Signs - 24 hr 05/31/22 05/31/22 05/31/22 19:28 20:08 21:25 Temperature 37.7 C 37.5 C Heart Rate 100 102 H 67 Respiratory 16 19 18 Rate Blood Pressure 120/76 121/85 H 115/91 H O2 Saturation 100 99 100 Oxygen O2 Source Room air - EKG (time done) 1929 Rate: Rate (enter#) Rhythm: Sinus tachycardia [place]: Normal Intervals: Normal [place] QRS: Normal Ischemia: No: ST elevation c/w ischemia, ST depression - Rads (name of study) 1v xr Radiology: EMP read contemporaneously (NAD) PD MEDICAL DECISION MAKING - ED course ED course: 26-year-old woman with nonspecific viral syndrome marked by body aches, cough, chest pain with coughing. EKG done out of triage without ischemic findings. Differential diagnosis considered, the history and symptoms are not consistent with PE or ACS. COVID is a distinct possibility and will test for same. We will check a chest x-ray to rule out pneumonia. Departure - Departure Disposition: 01 Home, Self Care Clinical Impression: Viral syndrome Condition: Good Record reviewed to determine appropriate education?: Yes Instructions: ED Viral Syndrome Prescriptions: Ibuprofen [Motrin] 800 mg PO Q8H PRN #14 tablet PRN Reason: PAIN &/OR FEVER HYDROcod/ACETAM 5/325 [[place] 5/325] 1 - 2 tab PO Q6H PRN #10 tablet PRN Reason: Pain Benzonatate [Tessalon] 200 mg PO QID PRN #20 cap PRN Reason: Cough Comments: I sent your prescriptions electronically to [facility] in [place]. Return if not better by Sunday, sooner if you develop new or worsening symptoms. You have a Covid test pending. You need to self quarantine until the result is done and negative. Do not leave your house. Do not get near anybody. The results should be done in 48 to 72 hours. We will call with a positive result, the fastest way to get a negative result for confirmation though is to go to the hospital website at [email or web address], click on the my [facility] tab and sign up for the patient portal. If any friends or family get sick and would like to have a Covid test done, but do not have signs or symptoms that would necessitate being hospitalized, there are multiple local options for Covid testing. [facility] keeps an updated list of testing and vaccination options at: [email or web address]. I am prescribing a short course of narcotic pain medication for you. These are potentially dangerous and addictive medications that should be used carefully. These medications may constipate you. Take an [id number] stool softener (docusate) twice daily with plenty of water while taking these medications. If you go 24 hours without a bowel movement, take byru-xeq-[id number] miralax, per package instructions. Do not drink or drive while taking these medications. If you received narcotic or sedating medications while in the emergency department, do not drive for 24 hours. Store this medication in a safe, secure place and out of reach of children. It is a violation of federal law to give or sell this medication to another person or to use in a manner other than prescribed. The ED will not refill narcotic prescriptions, including prescriptions lost or stolen. To dispose of unwanted medications: 1. [facility] [address] in [place] has a medication drop box. They accept prescription medications (in pill form) Sunday through Sunday 9:00 a.m. to 5:00 p.m. 2. [facility] accepts prescription medications (in pill form only) for disposal year round. Call for more information. 3. Contact the [facility] for the next [facility] sponsored prescription drug collection event. , [phone], or [phone]; Note that many narcotic pain relievers also contain Tylenol/acetaminophen. Please ensure that your total dose of acetaminophen from all sources does not exceed 3 g (3000 mg) per day. Forms: Activity restrictions Discharge Date/Time: 05/31/22 21:26
[2022-05-31] MEDS ORDERED: HYDROcod/ACET 5/325 Prepack 4 PO STA (21:19)
[2022-05-31 21:27] VITALS: BP 115/91
--- NOTE | 2022-05-31 22:27 | XRAY Report ---
PROCEDURE: Chest 1 View X-Ray INDICATIONS: cough TECHNIQUE: One view of the chest was acquired. COMPARISON: 04/27/2021 FINDINGS: Surgical changes and devices: None. Lungs and pleura: No pleural effusions or pneumothorax. Lungs are clear. Mediastinum: Mediastinal contours appear normal. Heart size is normal. Bones and chest wall: No suspicious bony lesions. Overlying soft tissues appear unremarkable. IMPRESSION: 1. No acute cardiopulmonary disease. Reviewed by: Westley Oliveira MD on 05/31/2022 10:26 PM PDT Approved by: Westley Oliveira MD on 05/31/2022 10:26 PM PDT Station ID: [id number]
== END 2022-05-31 21:26 | disposition home or self-care (01) ==
LOC: ED 19:18
DX: B34.9 Viral infection, unspecified (principal); Z20.822 Contact with and (suspected) exposure to COVID-19
CPT/HCPCS: 71045; 87635; 93005; 99283; 99284; A9270

== ENCOUNTER 2022-06-19 08:00 | Outpatient (CLI) | payer SELFPAY ==
[2022-06-19 23:42] LABS: CHLAMYDIA TRACHOMATIS DNA NEGATIVE (NEGATIVE); NEISSERIA GONORRHOEAE DNA NEGATIVE (NEGATIVE); TRICHOMONAS VAGINALIS DNA NEGATIVE (NEGATIVE)
[2022-06-21 07:10] LABS: RPR Non Reactive (Non Reactive)
[2022-06-21 10:09] LABS: HCV AB <0.1 s/co ratio (0.0-0.9)
[2022-06-22 00:07] LABS: HIV SCREEN 4TH GENERATION Non Reactive (Non Reactive)
== END 2022-06-19 23:59 | disposition home or self-care (01) ==
LOC: LAB.N 08:00
PROVIDERS: ATTEND Registered Nurse
DX: Z20.2 Contact with and (suspected) exposure to infections with a predominantly sexual mode of transmission (principal)
CPT/HCPCS: 36415; 86592; 86803; 87389; 87491; 87591; 87661

== ENCOUNTER 2023-06-22 01:54 | Inpatient (IN) | payer BC, OTHER ==
[2023-06-22 02:15] LABS: BASOPHILS # (AUTO) 0.1 10^3/uL (0.0-0.1); BASOPHILS % (AUTO) 0.3 %; EOSINOPHILS # (AUTO) 0.2 10^3/uL (0.0-0.7); EOSINOPHILS % (AUTO) 1.3 %; HCT - HEMATOCRIT 39.2 % (37.0-47.0); HGB - HEMOGLOBIN 13.4 g/dL (12.0-16.0); LYMPHOCYTES # (AUTO) 2.6 10^3/uL (1.5-3.5); LYMPHOCYTES % (AUTO) 13.5 %; MEAN CORPUSCULAR HEMOGLOBIN 28.8 pg (27.0-31.0); MEAN CORPUSCULAR HGB CONC 34.2 g/dL (32.0-36.0); MEAN CORPUSCULAR VOLUME 84.3 fL (81.0-99.0); MEAN PLATELET VOLUME 9.2 fL (7.9-10.8); MONOCYTES # (AUTO) 1.2 10^3/uL (0.0-1.0); MONOCYTES % (AUTO) 6.3 %; NEUTROPHILS # (AUTO) 14.9 10^3/uL (1.5-6.6); NEUTROPHILS % (AUTO) 78.3 %; PLT - PLATELET COUNT 347 10^3/uL (130-450); RED BLOOD COUNT 4.65 10^6/uL (4.20-5.40); RED CELL DISTRIBUTION WIDTH 12.5 % (12.0-15.0)
[2023-06-22] MEDS ORDERED: ONDANSETRON 4 MG/2 ML VIAL IVP STA ×2 (02:18→02:22)
[2023-06-22] MEDS ORDERED: SODIUM CHLORIDE 0.9% 1,000 ML IV STA (02:22)
[2023-06-22] MEDS ORDERED: MORPHINE 2 MG/ML CARPUJECT IVP STA (02:22)
--- NOTE | 2023-06-22 02:27 | ED Physician Documentation ---
History of Present Illness - Stated complaint Stated Complaint: ABD PX - Chief complaint Chief Complaint: Abd Pain - History obtained from History obtained from: Patient - Additonal information Additional information: 28yF with pmh possible PCOS p/w severe sudden onset 10/10 LLQ pain radiating upward and diffusely to entire abdomen, sharp, pulling sensation waking her from sleep at midnight. +nausea. denies vomiting, fever, diarrhea, back pain, urinary sx. LMP ended 5 days ago, lasted about 4 days. Review of Systems Constitutional: denies: Fever, Chills Cardiac: denies: Chest pain / pressure Respiratory: denies: Dyspnea GI: reports: Abdominal Pain, Nausea. denies: Vomiting, Constipation, Diarrhea, Bloody / black stool : denies: Dysuria, Frequency, Hematuria, Discharge, Vaginal bleeding Musculoskeletal: denies: Back pain PD PAST MEDICAL HISTORY - Past Medical History Past Medical History: Yes Cardiovascular: None Respiratory: None Neuro: None Endocrine/Autoimmune: None GI: None HOPPER FILLER: Other : Other HEENT: None Psych: None Musculoskeletal: None - Past Surgical History Past Surgical History: No - Present Medications Home Medications: Ambulatory Orders Medication Instructions Recorded Confirmed Ondansetron Odt [Zofran] 4 mg TL Q6H PRN #10 tablet 05/05/23 - Allergies Allergies/Adverse Reactions: Allergies Allergy/AdvReac Type Severity Reaction Status Date / Time No Known Drug Allergies Allergy Verified 06/22/23 02:06 - Social History Does the pt smoke?: No Smoking Status: Never smoker Does the pt drink ETOH?: No Does the pt have substance abuse?: No - Immunizations Immunizations are current?: Yes - POLST Patient has POLST: No PD ED PE NORMAL - Vitals Vital signs reviewed: Yes - General General: Alert and oriented X 3, Well developed/nourished, Other (tearful appearing) - HEENT HEENT: Atraumatic, PERRL, EOMI, Moist mucous membranes, Pharynx benign - Neck Neck: Supple, no meningeal sign - Cardiac Cardiac: RRR - Respiratory Respiratory: No respiratory distress, Clear bilaterally - Abdomen Abdomen: Other (diffusely ttp, worst in LLQ) - Back Back: No CVA TTP - Derm Derm: Normal color, Warm and dry - Extremities Extremities: No deformity - Neuro Neuro: Alert and oriented X 3 - Psych Psych: Normal mood, Normal affect Results - Vitals Vitals: Vital Signs - 24 hr 06/22/23 06/22/23 02:01 05:32 Temperature 36.7 C 36.3 C L Heart Rate 80 83 Respiratory 18 17 Rate Blood Pressure 116/72 125/86 H O2 Saturation 100 100 Oxygen O2 Source Room air - Labs Labs: Laboratory Tests 06/22/23 06/22/23 06/22/23 02:05 02:05 02:55 WBC 19.0 H RBC 4.65 Hgb 13.4 Hct 39.2 MCV 84.3 MCH 28.8 MCHC 34.2 RDW 12.5 Plt Count 347 MPV 9.2 Neut # (Auto) 14.9 H Lymph # (Auto) 2.6 [place] # (Auto) 1.2 H Eos # (Auto) 0.2 Baso # (Auto) 0.1 Absolute Nucleated RBC 0.00 Nucleated RBC % 0.0 Sodium 141 Potassium 4.2 Chloride 107 Carbon Dioxide 27 Anion Gap 7.0 BUN 12 Creatinine 0.7 Estimated GFR (MDRD) 101 Glucose 90 Calcium 9.8 Total Bilirubin 0.4 AST 15 ALT 16 Alkaline Phosphatase 85 Total Protein 7.6 Albumin 4.6 Globulin 3.0 Albumin/Globulin Ratio 1.5 Lipase 19 Urine Color YELLOW Urine Clarity CLEAR Urine pH 6.0 Ur Specific [place] 1.025 Urine Protein NEGATIVE Urine Glucose (UA) NEGATIVE Urine Ketones NEGATIVE Urine Occult Blood NEGATIVE Urine Nitrite NEGATIVE Urine Bilirubin NEGATIVE Urine Urobilinogen 0.2 (NORMAL) Ur Leukocyte Esterase SMALL H Urine RBC 0-5 Urine WBC 6-10 H Ur Squamous Epith Cells MOD Squamous H Urine Bacteria Rare Ur Microscopic Review INDICATED Urine Culture Comments NOT INDICATED Urine HCG, Qual 06/22/23 02:55 WBC RBC Hgb Hct MCV MCH MCHC RDW Plt Count MPV Neut # (Auto) Lymph # (Auto) [place] # (Auto) Eos # (Auto) Baso # (Auto) Absolute Nucleated RBC Nucleated RBC % Sodium Potassium Chloride Carbon Dioxide Anion Gap BUN Creatinine Estimated GFR (MDRD) Glucose Calcium Total Bilirubin AST ALT Alkaline Phosphatase Total Protein Albumin Globulin Albumin/Globulin Ratio Lipase Urine Color Urine Clarity Urine pH Ur Specific [place] Urine Protein Urine Glucose (UA) Urine Ketones Urine Occult Blood Urine Nitrite Urine Bilirubin Urine Urobilinogen Ur Leukocyte Esterase Urine RBC Urine WBC Ur Squamous Epith Cells Urine Bacteria Ur Microscopic Review Urine Culture Comments Urine HCG, Qual NEGATIVE PD Medical Decision Making - ED course ED course: 28-year-old woman with sudden onset left lower abdominal pain waking her from sleep with associated nausea.Concern for ectopic , ovarian torsion, kidney stones, gastrointestinal distress, ruptured ovarian cyst. Plan to administer 6 mg IV morphinegiven with improvement. 1 L IV fluids also provided along with some Zofran. We have no ultrasound capabilities overnight therefore CT scan was ordered as next best modality to evaluate differential. CBC, abdominal panel, urinalysis, hCG also ordered. WBC 19. CT wet read shows cystic structure in LLQ 3cm diameter approximately. d/w Dr. Santamaria, fiberglass autobody repairer who will evaluate. 5:50am - Dr. Santamaria examined patient and is recommending obtain u/s as next step and contact him with results. possible tubo-ovarian abscess vs torsion. Will endorse to incoming daytime ED MD at 7am shift change. 6:20am - Dr. Santamaria asked to go ahead and have her admitted to his service, high suspicion PID with possible TOA Departure - Departure Disposition: 66 [facility] DC/Xfer Clinical Impression: Abdominal pain, Nausea, Ovarian cyst, PID (acute pelvic inflammatory disease) Condition: Fair Forms: PCP List
[2023-06-22 03:06] LABS: BILIRUBIN,URINE NEGATIVE (NEGATIVE); GLUCOSE, URINE (UA) NEGATIVE (NEGATIVE); KETONES,URINE (UA) NEGATIVE (NEGATIVE); LEUKOCYTE ESTERASE, URINE SMALL (NEGATIVE); NITRITE,URINE NEGATIVE (NEGATIVE); OCCULT BLOOD,URINE NEGATIVE (NEGATIVE); PROTEIN,URINE NEGATIVE (NEGATIVE); UROBILINOGEN,URINE 0.2 (NORMAL) E.U./dL (NORMAL)
[2023-06-22 03:34] LABS: CLARITY,URINE CLEAR (CLEAR)
[2023-06-22 03:35] LABS: BACTERIA,URINE Rare /HPF (None Seen); HCG UR QUAL NEGATIVE; RBC,URINE 0-5 /HPF (0-5); SQUAMOUS EPITHELIAL CELL,UR MOD Squamous (<= Few)
[2023-06-22 04:33] LABS: ALBUMIN 4.6 g/dL (3.2-5.5); ALBUMIN/GLOBULIN RATIO 1.5 (1.0-2.2); BILIRUBIN,TOTAL 0.4 mg/dL (0.2-1.0); CALCIUM 9.8 mg/dL (8.5-10.3); CREATININE 0.7 mg/dL (0.6-1.3); POTASSIUM 4.2 mmol/L (3.5-4.5); TOTAL PROTEIN 7.6 g/dL (6.4-8.9)
[2023-06-22] MEDS ORDERED: iohexoL-300 100 ML VIAL IVP ONE (04:55)
[2023-06-22] MEDS ORDERED: MORPHINE 2 MG/ML CARPUJECT IVP PRN (06:25)
[2023-06-22] MEDS ORDERED: SODIUM CHLORIDE FLUSH 0.9% 10 ML SYRINGE IVP PRN (06:25)
[2023-06-22] MEDS ORDERED: ONDANSETRON ODT 4 MG TABLET TL PRN (06:25)
[2023-06-22] MEDS ORDERED: CALCIUM CARBONATE CHEW 500 MG TABLET PO PRN (06:25)
--- NOTE | 2023-06-22 06:38 | HISTORY & PHYSICAL EXAMINATION ---
Chief Complaint - Chief Complaint Chief Complaint: Pelvic Pain History of Present Illness - Admitted From Admitted From:: ED - History Obtained From History obtained from: Patient - History of Present Illness HPI Comment/Other: Patient is a 28-year-old G0 presenting today with sudden onset 10/10 pain that woke her up from sleep around midnight. I was consulted due to concern for possible torsion. She does have a cystic mass in the left lower quadrant. She has never had this pain before. She has diffuse cramping feeling across her abdomen, but more noticeable in the upper abdomen. She does have an ache in the area of the left lower quadrant pain and has increased tenderness there. Some nausea, but it is improved to 4/7 with the pain medicines she received on arrival. No vomiting, constipation, diarrhea, dysuria. LMP was approximately 06/13/2023 and lasted 4 days. Cycles are irregular at baseline anywhere from every 6 months to multiple in 1 month. She thinks she has possible PCOS, but has not had answers. Also having increased hair and says she plucks her lower abdomen and under her chin. Does not have a pattern vault clerk that she sees. PMH Oligomenorrhea Remote history of chlamydia History of gonorrhea approximately 5 months ago PSH History of some sort of possibly ovarian surgery as an infant. She is unsure of details [place] teeth extraction SH Works for the [employer]. Lives in [place] and drove up yesterday for drill. Denies tobacco, alcohol, drugs Family History Unknown. No contact with her family. Allergies No known drug allergies Medications No medication use Physical exam: General: Alert, oriented, no acute distress Head: Normal cephalic atraumatic Eyes: PERRLA, extraocular motions intact. Respiratory: Normal rate of respiration. No accessory muscle use, normal respiratory effort. Cardiovascular: Regular rate and rhythm Abdomen: Tenderness diffusely in upper abdomen, more significant pain with some guarding in left lower quadrant. Extremities: Normal range of motion Neuro: Oriented x3. Normal movements Psych: Appropriate mood and affect. Normal judgment and insight : Significant cervical motion tenderness and pain bilaterally on bimanual exam. History - Past Medical History Cardiovascular: reports: None Respiratory: reports: None Neuro: reports: None Endocrine/Autoimmune: reports: None GI: reports: None MED CARE MANAGER: reports: Other (History of gonorrhea and chlamydia) : reports: Other HEENT: reports: None Psych: reports: None Musculoskeletal: reports: None MRSA Hx?: No - Past Surgical History /MED CARE MANAGER: reports: Other (Ovarian/pelvic surgery as infant) - POLST Patient has POLST: No Meds/Allgy - Home Medications Home Medications: Ambulatory Orders Medication Instructions Recorded Confirmed Ondansetron Odt [Zofran] 4 mg TL Q6H PRN #10 tablet 05/05/23 - Allergies Allergies/Adverse Reactions: Allergies Allergy/AdvReac Type Severity Reaction Status Date / Time No Known Drug Allergies Allergy Verified 06/22/23 02:06 Exam - Vital Signs Vital Signs: Vital Signs x48h Temp Pulse Resp BP Pulse Ox 06/22/23 05:32 97.3 F L 83 17 125/86 H 100 06/22/23 02:01 98.1 F 80 18 116/72 100 Conclusion/Plan - Problem List (1) PID (acute pelvic inflammatory disease) Conclusion/Plan: -Admit for IV antibiotic: ceftriaxone, doxycycline, metronidazole. Anticipate 24-48 hours of antibiotics then transition to oral for continuation outpatient. -Leukocytosis, but not other signs concerning for sepsis -GC/CT pending (2) Abdominal pain Conclusion/Plan: Anticipate improvement after antibiotics Qualifiers: Abdominal location: left lower quadrant Qualified Code(s): R10.32 - Left lower quadrant pain (3) Ovarian cyst Conclusion/Plan: Likely stable from several years ago. May be part of hydrosalpinx complex TVUS pending, but unlikely torsion Qualifiers: Laterality: left Qualified Code(s): N83.202 - Unspecified ovarian cyst, left side - Lab Results Fish Bones: 06/22/23 02:05 06/22/23 02:05 - Diagnostic Imaging Results Diagnostic Imaging Results: positive: Read independently Diagnostic Imaging Results Comments: Approximately 3 cm cystic lesion in the left lower quadrant, stable from 2020. Likely bilateral hydrosalpinx versus pyosalpinx. Final read pending.
[2023-06-22] MEDS: IBUPROFEN 600 MG TABLET PO SCH ×4 (06:52→23:55)
[2023-06-22] MEDS: ACETAMINOPHEN 325 MG TABLET PO PRN (06:52)
[2023-06-22] MEDS: cefTRIAXone 1 GM in SODIUM CHLORIDE 0.9% MINIBAG 100 ML IV SCH (06:53)
[2023-06-22] MEDS ORDERED: cefTRIAXone 1 GM VIAL ONE (06:58)
--- NOTE | 2023-06-22 07:53 | CT Report ---
PROCEDURE: ABDOMEN/PELVIS W INDICATIONS: severe LLQ pain radiating diffusely CONTRAST: Omni 300 100ml TECHNIQUE: After the administration of intravenous contrast, 5 mm thick sections acquired from the diaphragms to the symphysis. 5 mm thick coronal and sagittal reformats were acquired. For radiation dose reducti on, the following was used: automated exposure control, adjustment of mA and/or kV according to chadwick ent size. COMPARISON: 10/13/2020 FINDINGS: Image quality: Excellent. Lung bases and heart: Unremarkable. Liver: No solid mass. Gallbladder and biliary tree: No radiopaque stones or wall thickening. No biliary dilation. Spleen: No splenomegaly. Pancreas: No pancreatic ductal dilation. Adrenals: No adrenal nodule. Kidneys and ureters: No hydronephrosis. No renal cystic lesion which requires follow up. No solid mas s. Bowel and peritoneum: No bowel distension. No pathologic free fluid. Lymph nodes: No central or retroperitoneal adenopathy. Vessels: No infrarenal aortic aneurysm. PELVIS Reproductive organs: There is a tubular structure extending to the left adnexa which most likely repr esents a hydrosalpinx. This was present on the previous CT. There is a 3.0 cm left adnexal cyst. On t he previous study, there was a left adnexal cyst measuring 2.8 cm. There is a possible right hydrosal pinx. The right adnexa is also noted to be cystic. The uterus is grossly unremarkable. Bladder: No abnormal wall thickening, accounting for underdistension. Pelvic lymph nodes: No pelvic adenopathy by size criteria. Bones: No aggressive osseous abnormality. Other: No significant ventral or inguinal hernia. IMPRESSION: 1. Findings likely represent a left hydrosalpinx, also present in 2020. Additionally, there is a 3.0 cm left adnexal cystic lesion. On the previous study, there was a 2.8 cm cystic lesion. 2. There is a probable right hydrosalpinx as well. 3. No other significant findings. Findings are concordant with preliminary interpretation provided by [facility]. Reviewed by: Frederick Salmon MD on 06/22/2023 7:51 AM PDT Approved by: Frederick Salmon MD on 06/22/2023 7:51 AM PDT Station ID: [id number]
[2023-06-22] MEDS: DOXYCYCLINE 100 MG TABLET PO SCH ×2 (08:36→20:01)
[2023-06-22] MEDS: metroNIDAZOLE 250 MG TABLET PO SCH ×2 (08:36→20:01)
--- NOTE | 2023-06-22 08:40 | Ultrasound Report ---
PROCEDURE: Pelvic w/Transvag+Doppler Comp INDICATIONS: LLQ pain, ovarian cyst TECHNIQUE: Real-time scanning was performed of the pelvic organs, with image documentation. Additional endovagi nal scanning was necessary due to incomplete visualization of the adnexal and endometrial structures by transabdominal scanning. Doppler interrogation was performed of the ovaries bilaterally. COMPARISON: None. FINDINGS: Uterus: Uterus is anteverted and normal in size at 7.5 x 3.4 x 3.9 cm. The myometrium is homogeneou s. The endometrium measures 3 mm in combined thickness. Ovaries: The right ovary measures 3.9 x 2.6 x 2.4 cm, with a calculated ovarian volume of 12.6 cc. The left ovary measures 2.7 x 1.4 x 2.4 cm, with a calculated ovarian volume of 4.69 cc. Appropriate blood flow to the ovaries with Doppler interrogation. Less than 12 follicles can be seen in each o vary. No adnexal masses are seen. No cystic lesions measuring greater than 3 cm. Other: No pathologic free abdominal or pelvic fluid. IMPRESSION: 1. Unremarkable pelvic ultrasound. 2. Some flow visualized within the bilateral ovaries; however given overlying bowel gas, good flow co uld not be documented in the left ovary. However, there are no findings to suggest torsion at this ti me. Intermittent torsion however cannot be excluded. Reviewed by: Aylin Barnett MD on 06/22/2023 8:38 AM PDT Approved by: Aylin Barnett MD on 06/22/2023 8:38 AM PDT Station ID: [id number]
[2023-06-22 09:53] LABS: CHLAMYDIA TRACHOMATIS DNA NEGATIVE (NEGATIVE); NEISSERIA GONORRHOEAE DNA NEGATIVE (NEGATIVE); TRICHOMONAS VAGINALIS DNA NEGATIVE (NEGATIVE)
[2023-06-22] MEDS: SODIUM CHLORIDE FLUSH 0.9% 10 ML SYRINGE IVP SCH ×3 (11:53→23:55)
--- NOTE | 2023-06-22 13:07 | PHARMACY PROGRESS NOTE ---
- Best Possible Medication History Admit Date and Time: 06/22/23 0625 Processed by: Pharmacy Medication History completed: Yes Patient Interview: Completed As the person ultimately responsible for medication therapy, providers are able to order a medication from an existing home medication list in [facility] via the "Reconcile Routine" prior to Confirmation of that medication by senior office support assistant sosa. Such practice is discouraged except when the physician, in their clinical faina gment, deems that a medical need exists for a medication without regard to previous use.
[2023-06-23] MEDS ORDERED: SODIUM CHLORIDE 0.9% 500 ML IV ONE (00:56)
[2023-06-23] MEDS: ACETAMINOPHEN 325 MG TABLET PO PRN ×2 (02:57→08:01)
[2023-06-23] MEDS: IBUPROFEN 600 MG TABLET PO SCH (06:03)
[2023-06-23] MEDS: cefTRIAXone 1 GM in SODIUM CHLORIDE 0.9% MINIBAG 100 ML IV SCH (06:06)
[2023-06-23 07:43] VITALS: BP 93/50; O2SAT 100
[2023-06-23] MEDS: SODIUM CHLORIDE FLUSH 0.9% 10 ML SYRINGE IVP SCH (08:00)
[2023-06-23] MEDS: DOXYCYCLINE 100 MG TABLET PO SCH (08:00)
[2023-06-23] MEDS: metroNIDAZOLE 250 MG TABLET PO SCH (08:00)
--- NOTE | 2023-06-23 10:41 | DISCHARGE SUMMARY ---
Discharge Summary Admit Date: 06/22/23 Discharge Date: 06/23/23 Discharging Provider: jordana Primary Care Provider: mallory Matthews Status: Attempt Resuscitation Condition at Discharge: Good Discharge Disposition: 01 Home, Self Care - DIAGNOSES Admission Diagnoses: PID Discharge Diagnoses with Status of Each Condition: PID, nausea and pain improved, stable for discharge and outpatient regimen - HPI History of Present Illness: Doing well today still with pelvic pain, though improved and only with movement feels stable to D/C home, will hold from work x 1 week for convalescence voiding OK, nausea improved. had a low BP overnight (90s/50s) - MD was NOT notified, liter bolus given. pt has PAVON this morning. Throughout the night no elevated pulse. asked if she wants coffee - she said no asked if she gets PAVON usually - she said yes, cafiene, as she drinks energy drinks all day at work. suspect that the lower BP & PAVON are from absence of energy drinks, no other signs of sepsis or concern. will re-check BP before sending home. precautions reviewed - HOSPITAL COURSE Hospital Course: Pt admitted for parenteral management of PID improved OK to D/C home. - ALLERGIES Allergies/Adverse Reactions: Allergies Allergy/AdvReac Type Severity Reaction Status Date / Time No Known Drug Allergies Allergy Verified 06/22/23 02:06 - PHYSICAL EXAM AT DISCHARGE General Appearance: positive: No acute distress, Alert Eyes Bilateral: positive: Normal inspection ENT: positive: ENT inspection nml Neck: positive: Nml inspection Respiratory: positive: Chest non-tender, No respiratory distress, Breath sounds nml Cardiovascular: positive: Regular rate & rhythm Abdomen: positive: Non-tender, No organomegaly, No distention Skin: positive: Color nml, No rash, Warm, Dry Extremities: positive: Non-tender, Full ROM Neurologic/Psychiatric: positive: Oriented x3 - LABS Result Diagrams: 06/22/23 02:05 06/22/23 02:05 - DIAGNOSTIC IMAGING Diagnostic Imaging Results: See rad report - SEPSIS Current Stage of Sepsis: Ruled out - QUALITY (Female Hip Fx Only) Was patient sent home on osteoporosis medication?: No - FOLLOW UP Follow Up: 1-2 weeks if no PCP can be established - pt lives 1.5h away - welcomed back to our clinic and we are available by phone 12/03. - TIME SPENT Time Spent in Discharge (Minutes): 30
--- NOTE | 2023-06-23 10:53 | Discharge Plan ---
Discharge Plan Problem Reviewed?: Yes Disposition: Home, Self Care Condition: Good Prescriptions: Doxycycline Hyclate 100 mg PO BID 13 Days #26 cap metroNIDAZOLE [Flagyl] 500 mg PO BID 13 Days #26 tablet Diet: Regular Activity Restrictions: No Restrictions Shower Restrictions: No Driving Restrictions: No Instruction Topics: PID Health Concerns: PID Plan of Treatment: continue antibiotics until all finished Assessment: improved, OK to D/C home will hold from work x 1 week Additional Instructions or Follow Up instructions: please find PCP, try to f/u in 1-2 weeks OK to call women's clinic for anything, as we cared for her in the hospital. No Smoking: If you smoke, Please STOP! Call for help.
== END 2023-06-23 11:20 | disposition home or self-care (01) | DRG 759 ==
LOC: ED 01:54 → MS2 06:25
PROVIDERS: ADMIT Obstetrics & Gynecology; ATTEND Obstetrics & Gynecology
DX: N73.9 Female pelvic inflammatory disease, unspecified (principal); R11.0 Nausea; R03.1 Nonspecific low blood-pressure reading; R51.9 Headache, unspecified; N83.202 Unspecified ovarian cyst, left side; Z86.19 Personal history of other infectious and parasitic diseases; Z32.02 Encounter for pregnancy test, result negative; Z98.890 Other specified postprocedural states
CPT/HCPCS: 36415; 74177; 76830; 76856; 80053; 81001; 81025; 83690; 85025; 87491; 87591; 87661; 93975; 96374; 96375; 99285; A9270; Q9967; 81003; 87086